=== PATIENT | female | born 1985 | race Caucasian/White ===

== ENCOUNTER 2022-12-18 20:41 | Inpatient (IN) | payer OTHER, SELFPAY ==
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
[2022-12-18 20:46] VITALS: BP 159/95; PULSE 114; RESP 18; TEMP 36.1; O2SAT 96; BMI 27.2
[2022-12-18 21:26] LABS: MANUAL DIFF FLAG NO
[2022-12-18 21:32] LABS: Basophils Percent Auto 0.5 % (0-2); Eosinophils Absolute Auto 0.1 X10*3/uL (0.0-0.4); Eosinophils Percent Auto 1.3 % (0-4); Hemoglobin 14.8 g/dl (12.0-16.0); Imm Gran Abs Auto 0.01 X10*3/uL (0.00-0.03); Imm Gran Pct Auto 0.1 % (0.0-0.4); Lymphocytes Absolute Auto 1.8 X10*3/uL (1.2-4.9); Lymphocytes Percent Auto 23.8 % (20-40); Mean Corpuscular HGB Conc 33.6 g/dl (31.0-35.0); Mean Corpuscular Volume 98.2 fL (80.0-98.0); Mean Platelet Volume 9.9 fL (9.4-12.3); Monocytes Absolute Auto 0.7 X10*3/uL (0.1-1.2); Monocytes Percent Auto 8.7 % (2-11); Neutrophils Absolute Auto 5.1 x10*3/uL (2.0-8.3); Neutrophils Percent Auto 65.6 % (45-73); Platelet Count 312 X10*3/uL (160-400); Red Blood Count 4.48 X10*6/uL (4.20-5.50); White Blood Count 7.7 X10*3/uL (4.8-10.8)
[2022-12-18 21:55] LABS: Alanine Aminotransferase 23 U/L (0-31); Albumin Level 4.4 g/dL (3.5-5.0); Alkaline Phosphatase 101 U/L (39-117); Anion Gap 15 (12-20); Aspartate Amino Transferase 29 U/L (5-31); Bilirubin Total 0.3 mg/dL (0.0-1.0); Blood Urea Nitrogen 11 mg/dL (9-16); Calcium 9.4 mg/dL (8.4-10.2); Carbon Dioxide 24 mmol/L (22-29); Chloride 110 mmol/L (96-108); Creatinine Clr Calc Pharmacy 86.4; Estimated Glomerular Filt Rate > 60; Glucose Random 88 mg/dL (60-115); Potassium 4.8 mmol/L (3.3-5.1); Sodium 144 mmol/L (135-145); Total Protein 6.7 g/dL (6.5-8.0)
[2022-12-18 21:56] LABS: COVID-19 Test Negative (Negative); IDNOW Serial# 55D5AD1C
[2022-12-18 21:59] LABS: Acetaminophen LAB < 17 mcg/mL (<30); Ethanol 170 mg/dL; Salicylate < 5.0 mg/dL (15-30)
[2022-12-19 01:30] VITALS: BP 104/65; PULSE 100; RESP 18; TEMP 36.7; O2SAT 98
[2022-12-19 01:41] LABS: Appearance Urine Clear; Color Urine Yellow; Glucose Urine UA Negative (Negative); Leukocyte Esterase Urine Negative (Negative); Nitrite Urine Negative (Negative); PH 5.5 (5.0-9.0); Specific Gravity - Urine 1.015 (1.005-1.025); Urine Blood Negative (Negative); Urine Ketones Trace mg/dL (Negative); Urine Protein Negative (Neg-Trace)
[2022-12-19 01:43] LABS: UPreg QC Valid YES; Urine Pregnancy NEGATIVE (NEGATIVE)
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
[2022-12-19 01:50] LABS: Amphetamine Screen Urine Not Detected (Not Detect); Barbiturates, Urine Not Detected (Not Detect); Benzodiazepines Screen Urine Not Detected (Not Detect); Cannabinoid Screen Urine POSITIVE (Not Detect); Cocaine Screen Urine Not Detected (Not Detect); Fentanyl, urine Not Detected (Not Detect); Opiate Screen Urine Not Detected (Not Detect); Phencyclidine Screen Urine Not Detected (Not Detect)
--- NOTE | 2022-12-19 06:57 | PC.NURSE ---
Patient was up whole night, restless and pacing, offered PRN medication refused, behavior psychotic but redirectable, thought content and process grossly paranoid and delusional, patient was assessed by care team disposition per care team is section 12 inpatient bed search, patient is not on any home medication, per family patient is off her medication for years, VSS, will continue to monitor.
--- NOTE | 2022-12-19 07:05 | PC.NURSE ---
patient appears to remain at rest at present. patient has already approached t/w in regards to taking a shower, i informed her we will assist her shirtly, appears in no distress, slight paranoid flavor. (asking for antibacterial soap)
--- NOTE | 2022-12-19 16:13 | PC.NURSE ---
Call made to [facility] regarding admission status. Per floor staff there was a delay in orders. Per Tahira, staff will be down shortly
[2022-12-19 16:45] VITALS: RESP 20
[2022-12-19] MEDS: LORazepam 2 MG/ML VIAL IM (16:45)
[2022-12-19] MEDS: OLANZapine 10 MG VIAL IM (16:45)
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
[2022-12-20 08:49] VITALS: RESP 16
--- NOTE | 2022-12-20 08:53 | PC.NURSE ---
12/20/22: Pt refused vital signs, labs, and EKG stating 'No one is allowed to touch me until I talk to my patternmaker plastics.' She complains of cyst. States I'm going to walk away now when presented with CIWA questions. Not displaying physical withdrawal symptoms.
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
[2022-12-20] MEDS: Nicotine Polacrilex Lozenge 4 MG LOZENGE BUCCAL (16:55)
[2022-12-20 18:00] VITALS: BP 126/68; PULSE 68; RESP 16; TEMP 36.4; O2SAT 98
--- NOTE | 2022-12-21 | ECG_ITS ---
Test Reason : Routine Blood Pressure : / mmHG Vent. Rate : 064 BPM Atrial Rate : 064 BPM P-R Int : 134 ms QRS Dur : 084 ms QT Int : 402 ms P-R-T Axes : 037 081 057 degrees QTc Int : 414 ms Normal sinus rhythm Normal ECG No previous ECGs available Referred By: Valencia Wheatley Electronically Signed By:MANISHA PARMAR
[2022-12-21] MEDS: Nicotine Polacrilex Lozenge 4 MG LOZENGE BUCCAL ×3 (04:02→20:44)
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
[2022-12-21] MEDS: Benztropine Mesylate 2 MG/2 ML VIAL 1 MG IM (09:42)
[2022-12-21] MEDS: Haloperidol Lactate 5 MG/ML VIAL IM (09:43)
[2022-12-21] MEDS: LORazepam 2 MG/ML VIAL IM (09:43)
[2022-12-21 09:50] VITALS: BP 122/81; PULSE 72; RESP 16; TEMP 36.7; O2SAT 98
[2022-12-21 10:05] VITALS: BP 121/71; PULSE 68; RESP 16; TEMP 36.7; O2SAT 98
[2022-12-21 10:20] VITALS: BP 121/68; PULSE 68; RESP 16; TEMP 36.7; O2SAT 98
[2022-12-21 10:35] VITALS: BP 120/70; PULSE 72; RESP 16; TEMP 36.7; O2SAT 98
--- NOTE | 2022-12-21 12:05 | PC.NURSE ---
On 12/21/22 at 0930 pt discovered to have barricaded herself in her room, would not allow staff or roommate to enter. Attempted verbal deescalation without effect. Security called, doctor called for restraint ordered. Orders given. Staff entered room. Pt had destroyed room and had hands up. Staff guided pt to restraint chair and applied restraints. IMs given as ordered at 9:35. Pt regained behavioral control and restraints were removed at 10:15. She was walked back to her room and went to sleep.
--- NOTE | 2022-12-21 13:24 | P.PNPSI_ITS ---
Subjective Subjective Date of Service: 12/21/22 Reason For Visit: david Subjective Notes: Section 7 Interim History: Pt in morning was chemically restraint. Pt yelling, threatening not able to be redirected. Pt later calmer, but not engaging in much conversation. She asks this health technical writer for a sweater, she is wearing blanket around her arms. Pt walked away and declined to talk further with this health technical writer. She presents as disheveled, unkempt. No meaninful conversations with staff or this health technical writer. Review of Systems Review of Systems Constitutional : No Weight loss, No Fever, No Chills, No Night Sweats, No Fatigue, No Malaise ENT/Mouth : No Hearing loss, No Ear Pain, No Nasal Congestion, No Sinus Pain, No Hoarseness, No sore throat, No Rhinorrhea, No Swallowing Difficulty Eyes: No Eye Pain, No Swelling, No Redness, No Foreign Body, No Discharge, No Vision Changes Cardiovascular : No Chest Pain, No SOB, No Dyspnea on Exertion, No Orthopnea, No Edema, No Palpitations Respiratory : No Cough, No Sputum, No Wheezing, No Smoke Exposure, No Dyspnea Gastrointestinal : No Nausea, No Vomiting, No Diarrhea, No Constipation, No abdominal Pain, No Hematochezia, No Melena Genitourinary : no irregular bleeding, No Dysuria, No Urinary Frequency, No Hematuria, No Urinary Incontinence, No Urgency, No Flank Pain, No Urinary Flow Changes, No Hesitancy Musculoskeletal : No joint pain, No Myalgias, No Joint Swelling Skin : No Skin Lesions, No rash Neuro : No Weakness, No Numbness, No Paresthesias, No Loss of Consciousness, No Dizziness, No Headache Psych : No Anxiety/Panic, No Depression, No SI/HI/AH/VH, admits to alcohol abuse Heme/Lymph: No Bruising, No Bleeding,No Lymphadenopathy Endocrine : No Polyuria, No Polydipsia, No Temperature Intolerance Yes all other systems are reviewed and are negative Reports behavioral changes and Reports confusion Psychiatric: Reports abnormal sleep pattern, Reports anxiety, Reports behavioral changes, Reports confusion, Reports difficulty concentrating, Reports irritability, Reports mood swings, Reports paranoia and Reports hallucinations Mental Status Exam Mental Status Exam Patient Appearance: Disheveled Patient Orientation: Person, Place, Time and Situation Level of Consciousness: Restless and Alert Patient Behavior: Guarded, Talkative, Hyperactive, Suspicious, Restless, Resistive to Care, Avoidant, Distractible, Impulsive and Poor Eye Contact Mood Description: Labile and Angry Affect Description: Labile and Angry Patient Cognition Impaired: No Ability to Follow Directions: Good Speech Pattern: Perseverating, Spontaneous Speech, Rambling, Cofabulation, Rapid and Pressured Memory Description: Episodic Impaired Diagnostics Vital Signs (24Hr): Vital Signs - 24 hr 12/21/22 10:35 12/21/22 20:02 12/22/22 06:00 Temperature 98.1 F 97.3 F Pulse Rate 72 74 Respiratory Rate 16 16 18 Blood Pressure 120/70 130/69 Pulse Oximetry 98 98 Oxygen Delivery Method Room Air Room Air BMI result Body Mass Index 27.2 Labs 12/18/22 21:22 12/18/22 21:22 Medications Medications Current Medications Acetaminophen (Acetaminophen 325 Mg Tablet) 650 mg PO Q6H PRN PRN Reason: Headache/Pain Mild Scale (1-3) Al Hydroxide/Mg Hydroxide (Magnesium Hydrox/Alum Hydrox 30 Ml Oral.Susp) 30 ml PO Q6H PRN PRN Reason: Heartburn/Nausea Hydroxyzine HCl (Hydroxyzine Hcl 25 Mg Tablet) 25 mg PO Q6H PRN PRN Reason: Anxiety Lorazepam (Lorazepam 1 Mg Tablet) 1 mg PO Q4H PRN PRN Reason: withdrawal, agitation Magnesium Hydroxide (Milk Of Magnesia 30 Ml Oral.Susp) 30 ml PO DAILY PRN PRN Reason: Constipation Multivitamins/Vitamin C (Multivitamin Tablet) 1 tab PO DAILY [facility] Last Admin: 12/22/22 08:28 Dose: Not Given Nicotine Polacrilex (Nicotine Polacrilex Lozenge 4 Mg Lozenge) 4 mg BUCCAL Q2H PRN PRN Reason: Nicotine Cravings Last Admin: 12/21/22 20:44 Dose: 4 mg Olanzapine (Olanzapine 10 Mg Tablet) 10 mg PO BID PRN PRN Reason: david, psychosis Thiamine HCl (Thiamine Hcl 100 Mg Tablet) 100 mg PO DAILY [facility] Last Admin: 12/22/22 08:28 Dose: Not Given Trazodone HCl (Trazodone Hcl 50 Mg Tablet) 50 mg PO BEDTIME MRX1 PRN PRN Reason: Insomnia Allergies Allergies Allergy/AdvReac Type Severity Reaction Status Date / Time No Known Allergies Allergy Verified 12/18/22 20:52 Assessment & Plan Assessment & Plan (1) Bipolar disorder with severe david: Status: Acute Code(s): F31.13 - Bipolar disorder, current episode manic without psychotic features, severe (2) Alcohol use disorder, severe, dependence: Status: Acute Code(s): F10.20 - Alcohol dependence, uncomplicated Plan 37 yo female, current david. Reports recent release from a hospital in [place], [place] Refuses medications, asks for an attorny and discharge Plan: Collateral contact Attempt alliance Pt given the number of [facility] for prosecuting attorney connection Refuses medications PRN medications are in place for david and withdrawal. 12/21 continue tx. Reason for contiued inpatient stay Substantial Risk for: harm to others and inability to function Time Spent With Patient Time: Total time managing care of this patient today ____ minutes.
[2022-12-21 20:02] VITALS: BP 130/69; PULSE 74; RESP 16; TEMP 36.3; O2SAT 98
[2022-12-22 06:00] VITALS: RESP 18
--- NOTE | 2022-12-22 10:20 | P.PNPSI_ITS ---
Subjective Subjective Date of Service: 12/22/22 Reason For Visit: david Interim History: Met with patient; discussed with nursing Patient calm after yesterday's restraint reports she slept through the night. Patient reports she had a visit today with her boyfriend and legal father which she said was fine but did not elaborate. Patient intermittently moderately intrusive with others, with intermittent disorganized behavior and disorganized speech. Patient is with pressured speech on approach and difficult to interrupt, almost as if she does not hear questions asked. Patient rambling about past events; she continually asks about a male peer on the unit saying she is worried about him, that he is lonely. Patient continues to refuse any medication and says she is just waiting for her lower. Mental Status Exam Mental Status Exam Narrative: Pt is alert and oriented; behavior is marginally cooperative but not un- friendly; hypomanic and intermittently verbally intrusive to others. Patient not in distress; dressed in casual attire and adequately groomed; mood is described as okay and affect constricted; eye contact avoidant; Speech is pressured, but normal volume and prosody; psychomotor agitation present; thought process can be goal oriented but is mostly rambling about topics irrelevant to context; delusiona, paranoid ideations present; denies any SI/HI. Denies AVH but internally preoccupied; Patients insight and judgment impaired Diagnostics Vital Signs (24Hr): Vital Signs - 24 hr 12/21/22 10:35 12/21/22 20:02 12/22/22 06:00 Temperature 98.1 F 97.3 F Pulse Rate 72 74 Respiratory Rate 16 16 18 Blood Pressure 120/70 130/69 Pulse Oximetry 98 98 Oxygen Delivery Method Room Air Room Air BMI result Body Mass Index 27.2 Labs 12/18/22 21:22 12/18/22 21:22 Medications Medications Current Medications Acetaminophen (Acetaminophen 325 Mg Tablet) 650 mg PO Q6H PRN PRN Reason: Headache/Pain Mild Scale (1-3) Al Hydroxide/Mg Hydroxide (Magnesium Hydrox/Alum Hydrox 30 Ml Oral.Susp) 30 ml PO Q6H PRN PRN Reason: Heartburn/Nausea Hydroxyzine HCl (Hydroxyzine Hcl 25 Mg Tablet) 25 mg PO Q6H PRN PRN Reason: Anxiety Lorazepam (Lorazepam 1 Mg Tablet) 1 mg PO Q4H PRN PRN Reason: withdrawal, agitation Magnesium Hydroxide (Milk Of Magnesia 30 Ml Oral.Susp) 30 ml PO DAILY PRN PRN Reason: Constipation Multivitamins/Vitamin C (Multivitamin Tablet) 1 tab PO DAILY [facility] Last Admin: 12/22/22 08:28 Dose: Not Given Nicotine Polacrilex (Nicotine Polacrilex Lozenge 4 Mg Lozenge) 4 mg BUCCAL Q2H PRN PRN Reason: Nicotine Cravings Last Admin: 12/21/22 20:44 Dose: 4 mg Olanzapine (Olanzapine 10 Mg Tablet) 10 mg PO BID PRN PRN Reason: david, psychosis Thiamine HCl (Thiamine Hcl 100 Mg Tablet) 100 mg PO DAILY [facility] Last Admin: 12/22/22 08:28 Dose: Not Given Trazodone HCl (Trazodone Hcl 50 Mg Tablet) 50 mg PO BEDTIME MRX1 PRN PRN Reason: Insomnia Allergies Allergies Allergy/AdvReac Type Severity Reaction Status Date / Time No Known Allergies Allergy Verified 12/18/22 20:52 Assessment & Plan Assessment & Plan (1) Bipolar disorder with severe david: Status: Acute Code(s): F31.13 - Bipolar disorder, current episode manic without psychotic features, severe (2) Alcohol use disorder, severe, dependence: Status: Acute Code(s): F10.20 - Alcohol dependence, uncomplicated Plan 37 yo female, current david. Reports recent release from a hospital in [place], [place] Refuses medications, asks for an attorny and discharge 12/22 patient difficult with which to engage; hypomanic with pressured speech and kind of in her own world talking about random unrelated topics; no insight; refuses medications; somewhat intrusive to peers but thus far redirectable Plan: Collateral contact Attempt alliance Pt given the number of [facility] for research attorney connection Refuses medications PRN medications are in place for david and withdrawal. Patient educated on: diagnosis and medication risk/benefits Informed Consent: does not understand Reason for contiued inpatient stay Substantial Risk for: inability to function and rapid decompensation Time Spent With Patient Time: Total time managing care of this patient today ____ minutes.
[2022-12-22] MEDS: Nicotine Polacrilex Lozenge 4 MG LOZENGE BUCCAL ×7 (11:03→22:31)
[2022-12-22 21:44] VITALS: BP 128/67; PULSE 89; RESP 16; TEMP 36.6; O2SAT 99
[2022-12-23] MEDS: Nicotine Polacrilex Lozenge 4 MG LOZENGE BUCCAL ×5 (00:31→19:06)
[2022-12-23] MEDS: LORazepam 2 MG/ML VIAL IM (03:40)
[2022-12-23] MEDS: diphenhydrAMINE HCL 50 MG/ML VIAL IM (03:40)
[2022-12-23] MEDS: Haloperidol Lactate 5 MG/ML VIAL IM (03:40)
--- NOTE | 2022-12-23 03:55 | PM.EVENT ---
Event Note Date of Service: 12/24/22 Event Note: Agitation: RN called that patient was chemically restrained because patient was agitated and aggressive towards staff. Spoke to the patient, patient is alert and awake, denies any complaints. Denies any pain. Signed the forms at 03:51 a.m. on 12/23/2022. Psychiatric is follow up in EM. Time Spent With Patient Time: Total time managing care of this patient today ____ minutes.
--- NOTE | 2022-12-23 04:09 | PC.NURSE ---
0315: Patient began to challenge staff, demanding that staff open unit door and let her out. Would not move away from unit door. Continuously shouting that her rights have been violated for the past three days and should be allowed to leave the hospital immediately. Yelling and swearing at staff, making insulting remarks.Making delusional statements. Staff unable to reality test. Security called for support. Dr Schmid notified and ordered Haldol 5mg, Ativan 2mg, Benadryl 50mg IM which were given at 0340. Pt was cooperative and accepted the injections. Dr Perez on unit at 0400 to evaluate patient. Presently, patient is resting calmly in her room.
[2022-12-23 09:36] VITALS: RESP 18
--- NOTE | 2022-12-23 11:44 | PM.EVENT ---
Event Note Date of Service: 12/23/22 Event Note: early this morning nursing called asking for IM restraint medication; pt was reportedly banging on exit door, could not be redirected, patient escalated and required medication restraint. Haldol 5, Ativan 2 and Benadryl 50 ordered Time Spent With Patient Time: Total time managing care of this patient today ____ minutes.
--- NOTE | 2022-12-23 11:45 | P.PNPSI_ITS ---
Subjective Subjective Date of Service: 12/23/22 Reason For Visit: david Interim History: Met with patient; discussed with nursing Patient remains disorganized and rambling. Very difficult with which to engage, talking over ticket writer about getting a water regulator and valve repairer; unable to have a meaningful conver sation. Very loud in the milieu. Mental Status Exam Mental Status Exam Narrative: Pt is alert and oriented; behavior is manic, loudly talking, rambling; intermittently verbally intrusive to others. Patient not in distress; dressed in casual attire and adequately groomed; mood is described as irritable; affect constricted; eye contact avoidant; Speech is pressured, loud volume; psychomotor agitation present; thought process can be goal oriented but is mostly rambling about topics some relevant, other irrelevant to context; delusional paranoid ideations present; denies any SI/HI. Denies AVH but internally preoccupied; Patients insight and judgment impaired Diagnostics Vital Signs (24Hr): Vital Signs - 24 hr 12/22/22 21:44 12/23/22 09:36 Temperature 97.8 F Pulse Rate 89 Respiratory Rate 16 18 Blood Pressure 128/67 Pulse Oximetry 99 Oxygen Delivery Method Room Air BMI result Body Mass Index 27.2 Labs 12/18/22 21:22 12/18/22 21:22 Medications Medications Current Medications Acetaminophen (Acetaminophen 325 Mg Tablet) 650 mg PO Q6H PRN PRN Reason: Headache/Pain Mild Scale (1-3) Al Hydroxide/Mg Hydroxide (Magnesium Hydrox/Alum Hydrox 30 Ml Oral.Susp) 30 ml PO Q6H PRN PRN Reason: Heartburn/Nausea Hydroxyzine HCl (Hydroxyzine Hcl 25 Mg Tablet) 25 mg PO Q6H PRN PRN Reason: Anxiety Magnesium Hydroxide (Milk Of Magnesia 30 Ml Oral.Susp) 30 ml PO DAILY PRN PRN Reason: Constipation Multivitamins/Vitamin C (Multivitamin Tablet) 1 tab PO DAILY [facility] Last Admin: 12/23/22 09:36 Dose: Not Given Nicotine Polacrilex (Nicotine Polacrilex Lozenge 4 Mg Lozenge) 4 mg BUCCAL Q2H PRN PRN Reason: Nicotine Cravings Last Admin: 12/23/22 09:53 Dose: 4 mg Olanzapine (Olanzapine 10 Mg Tablet) 10 mg PO BID PRN PRN Reason: david, psychosis Thiamine HCl (Thiamine Hcl 100 Mg Tablet) 100 mg PO DAILY [facility] Last Admin: 12/23/22 09:36 Dose: Not Given Trazodone HCl (Trazodone Hcl 50 Mg Tablet) 50 mg PO BEDTIME MRX1 PRN PRN Reason: Insomnia Allergies Allergies Allergy/AdvReac Type Severity Reaction Status Date / Time No Known Allergies Allergy Verified 12/18/22 20:52 Assessment & Plan Assessment & Plan (1) Bipolar disorder with severe david: Status: Acute Code(s): F31.13 - Bipolar disorder, current episode manic without psychotic features, severe (2) Alcohol use disorder, severe, dependence: Status: Acute Code(s): F10.20 - Alcohol dependence, uncomplicated Plan 37 yo female, current david. Reports recent release from a hospital in [place], [place] Refuses medications, asks for an attorny and discharge 12/22 patient difficult with which to engage; hypomanic with pressured speech and kind of in her own world talking about random unrelated topics; no insight; refuses medications; somewhat intrusive to peers but thus far redirectable 12/23 patient dysregulated last night banging on the exit door, refusing to disengage and needing security and it medical restraint; patient remains loud and difficult with which to engage, no insight. Patient switched to Q 5s with locked bathroom as she was stopping the toilet and sink with paper Plan: Q 5s with locked bathroom Collateral contact Attempt alliance Pt given the number of [facility] for certified medical coder connection Refuses medications PRN medications are in place for david and withdrawal. Informed Consent: does not understand Reason for contiued inpatient stay Substantial Risk for: inability to function Time Spent With Patient Time: Total time managing care of this patient today ____ minutes.
--- NOTE | 2022-12-23 13:59 | PC.NURSE ---
pt was assisted by usama DE DIOS to assist her in calling [facility] as she feels she is being held here against her will. message left with the answering machine
[2022-12-23 18:00] VITALS: BP 128/68; PULSE 71; RESP 16; TEMP 36.8; O2SAT 98
--- NOTE | 2022-12-23 20:38 | PC.NURSE ---
Pt is alert and oriented, manic and disorganized. Pt had a tearful moment during her sister's visit and requested not to have any family visit for some time.
[2022-12-24] MEDS: Nicotine Polacrilex Lozenge 4 MG LOZENGE BUCCAL ×8 (06:13→22:31)
[2022-12-24 07:46] VITALS: BP 120/70; PULSE 80; RESP 16; TEMP 36.5; O2SAT 99
[2022-12-24] MEDS: Multivitamin TABLET 1 TAB PO (08:20)
[2022-12-24] MEDS: Thiamine HCL 100 MG TABLET PO (08:20)
[2022-12-24] MEDS: hydrOXYzine HCL 25 MG TABLET PO (15:30)
--- NOTE | 2022-12-24 16:51 | HO.PSYCHPN ---
Subjective Subjective Date of Service: 12/24/22 Reason For Visit: david Subjective Notes: Section 7 Interim History: Section seven. Irritable with some intrusive, disorganized sx. No restraint need today. Declines medications, declines treatment Met with pt and DAJUAN Wright. discussed [address] to decide about further treatment. Pt reports she has just completed this process in [place], [place] and was released by the project lead. No questions, pt not wanting to engage in discussion about her symptoms or care today. Medication Compliance: No Side effects from medications: No Attending Groups: No Review of Systems Acute medical concerns: No Medical Review of Systems: unchanged Mental Status Exam Mental Status Exam Patient Appearance: Appropriate Patient Orientation: Person, Place, Time and Situation Level of Consciousness: Alert Patient Behavior: Guarded, Talkative, Hyperactive, Suspicious, Restless, Resistive to Care, Distractible, Good Eye Contact and Impulsive Mood Description: Labile Affect Description: Labile Patient Cognition Impaired: No Ability to Follow Directions: Fair Speech Pattern: Spontaneous Speech Memory Description: Episodic Impaired Hallucinations: None Delusions: Not Present Thought Process: Racing and Distracted Thought Content: positive for Racing, positive for Circumstantial, positive for Tangential, positive for Suicidal Ideation (denies) and positive for Homicidal Ideation (denies) Depressive Symptoms: Increased Irritability and Thoughts of /Suicide (denies) Abnormal Motor Activity Signs and Symptoms: Restlessness Judgement: Poor Diagnostics Vital Signs (24Hr): Vital Signs - 24 hr 12/23/22 18:00 12/24/22 07:46 Temperature 98.2 F 97.7 F Pulse Rate 71 80 Respiratory Rate 16 16 Blood Pressure 128/68 120/70 Pulse Oximetry 98 99 Oxygen Delivery Method Room Air Room Air BMI result Body Mass Index 27.2 Labs 12/18/22 21:22 12/18/22 21:22 Medications Medications Current Medications Acetaminophen (Acetaminophen 325 Mg Tablet) 650 mg PO Q6H PRN PRN Reason: Headache/Pain Mild Scale (1-3) Al Hydroxide/Mg Hydroxide (Magnesium Hydrox/Alum Hydrox 30 Ml Oral.Susp) 30 ml PO Q6H PRN PRN Reason: Heartburn/Nausea Hydroxyzine HCl (Hydroxyzine Hcl 25 Mg Tablet) 25 mg PO Q6H PRN PRN Reason: Anxiety Last Admin: 12/24/22 15:30 Dose: 25 mg Magnesium Hydroxide (Milk Of Magnesia 30 Ml Oral.Susp) 30 ml PO DAILY PRN PRN Reason: Constipation Multivitamins/Vitamin C (Multivitamin Tablet) 1 tab PO DAILY [facility] Last Admin: 12/24/22 08:20 Dose: 1 tab Nicotine Polacrilex (Nicotine Polacrilex Lozenge 4 Mg Lozenge) 4 mg BUCCAL Q2H PRN PRN Reason: Nicotine Cravings Last Admin: 12/24/22 16:37 Dose: 4 mg Nicotine Polacrilex (Nicotine Polacrilex 2 Mg Gum) 2 mg BUCCAL Q2H PRN PRN Reason: Nicotine Cravings Olanzapine (Olanzapine 10 Mg Tablet) 10 mg PO BID PRN PRN Reason: david, psychosis Thiamine HCl (Thiamine Hcl 100 Mg Tablet) 100 mg PO DAILY [facility] Last Admin: 12/24/22 08:20 Dose: 100 mg Trazodone HCl (Trazodone Hcl 50 Mg Tablet) 50 mg PO BEDTIME MRX1 PRN PRN Reason: Insomnia Allergies Allergies Allergy/AdvReac Type Severity Reaction Status Date / Time No Known Allergies Allergy Verified 12/18/22 20:52 Assessment & Plan Assessment & Plan (1) Bipolar disorder with severe david: Status: Acute Code(s): F31.13 - Bipolar disorder, current episode manic without psychotic features, severe (2) Alcohol use disorder, severe, dependence: Status: Acute Code(s): F10.20 - Alcohol dependence, uncomplicated Plan 37 yo female, current david. Reports recent release from a hospital in [place], [place] Refuses medications, asks for an attorny and discharge 12/22 patient difficult with which to engage; hypomanic with pressured speech and kind of in her own world talking about random unrelated topics; no insight; refuses medications; somewhat intrusive to peers but thus far redirectable 12/23 patient dysregulated last night banging on the exit door, refusing to disengage and needing security and it medical restraint; patient remains loud and difficult with which to engage, no insight. Patient switched to Q 5s with locked bathroom as she was stopping the toilet and sink with paper 12/24/22: Section Seven filed. No questions from pt at this time. Refusing medications No restraint needed today. Plan: Q 5s with locked bathroom Collateral contact Attempt alliance Pt given the number of [facility] for commercial attorney connection Refuses medications PRN medications are in place for david and withdrawal. Patient educated on: other Informed Consent: understands Reason for contiued inpatient stay Substantial Risk for: harm to self, harm to others, inability to function and rapid decompensation Time Spent With Patient Time: Total time managing care of this patient today ____ minutes.
[2022-12-24 20:44] VITALS: RESP 16
[2022-12-25] MEDS: Nicotine Polacrilex Lozenge 4 MG LOZENGE BUCCAL ×6 (07:07→21:44)
[2022-12-25 08:34] VITALS: BP 120/72; PULSE 90; RESP 18; TEMP 35.9; O2SAT 98
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
[2022-12-26] MEDS: Nicotine Polacrilex Lozenge 4 MG LOZENGE BUCCAL ×7 (07:53→22:05)
[2022-12-26 09:01] VITALS: BP 113/71; PULSE 68; RESP 16; TEMP 36.6; O2SAT 98
--- NOTE | 2022-12-26 11:55 | P.CONOB_ITS ---
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 She requested someone to check her because she is concerned about a cyst or abscess on her clitoris. She says that she had a very bad abscess at her clitoris 3 years ago that she was seen at the [facility] emergency room for that needed to be lanced with an Exacto knife and she ended up having surgery to remove the sac around the abscess. She said it was the most painful thing she ever experienced and she is very afraid of that happening again. She is sexually active with her boyfriend and would like to have a baby. She is wondering if she could have a baby and if she is healthy enough. In October she felt the swelling and pain again and she was afraid of having more pain with a surgical process but she went to [facility] and they were able to give her morphine this time and they extracted a large amount of blood in a syringe from the cyst that had formed there. She says that the doctor there told her to take warm showers or soak in a tub but she thinks the warm water running is better and she was told to gently try to press on the abscess to see if anything will come out when it is swollen. She is not having any pain there now but she is worried about it. She also thinks she would like to get tested for STDs because if she did have anything she would hate to give it to her boyfriend. cc:: CC: Valencia Wheatley [facility] Past Medical History Medical History (Updated 12/26/22 @ 12:10 by Jeni Sun CNM) Alcohol use disorder, severe, dependence Bipolar disorder with severe david Social History Social History Household Members: Significant Other and Other Household Members Other:: boyfriend's father Housing: Apartment Do you presently have visiting nurse or other home services: No Unable to assess alcohol history related to: Refusing to respond Patient Tobacco Use Status: Current everyday Tobacco user Tobacco use type: Cigarette Cigarette Packs Per Day: 1 Cigarettes Per Day: 20.0 Smoked in Last 30 Days: Yes e-Cigarette/Vaping Use: Never Used Patient Interested in Nicotine Replacement: Yes Patient Given Instructions on How to Stop Smoking: No Second Hand Smoke Exposure: No Use of substances other than those prescribed or required for medical reasons: Yes Substance Use Type: Marijuana Substance Use Frequency: Chronic Longstanding Last Used Substance: Just Prior to Admission Currently Displaying Signs/Symptoms of Drug Intoxication Withdrawal: No Any prior treatment program specific to substance use: Yes Spiritual Healthcare Practices: unknown Congregational Healthcare Practices: unknown Cultural Healthcare Practices: unknown Advance Directives: No Advance Directives Information Provided: Yes Healthcare Proxy: No Guardian: No Do you have thoughts of harming others: None Do you have a plan to hurt others: No Plan Recently lost weight without trying: No Eating poorly because of decreased appetite: No Nutrition Risks: No Nutritional Risk Patient : No : No Poor oral hygiene: No service: No Sexual orientation: Straight/Heterosexual Meds Allergies Allergy/AdvReac Type Severity Reaction Status Date / Time No Known Allergies Allergy Verified 12/18/22 20:52 Active Medications: Current Medications Acetaminophen (Acetaminophen 325 Mg Tablet) 650 mg PO Q6H PRN PRN Reason: Headache/Pain Mild Scale (1-3) Al Hydroxide/Mg Hydroxide (Magnesium Hydrox/Alum Hydrox 30 Ml Oral.Susp) 30 ml PO Q6H PRN PRN Reason: Heartburn/Nausea Hydroxyzine HCl (Hydroxyzine Hcl 25 Mg Tablet) 25 mg PO Q6H PRN PRN Reason: Anxiety Last Admin: 12/24/22 15:30 Dose: 25 mg Magnesium Hydroxide (Milk Of Magnesia 30 Ml Oral.Susp) 30 ml PO DAILY PRN PRN Reason: Constipation Multivitamins/Vitamin C (Multivitamin Tablet) 1 tab PO DAILY [facility] Last Admin: 12/26/22 08:49 Dose: Not Given Nicotine Polacrilex (Nicotine Polacrilex Lozenge 4 Mg Lozenge) 4 mg BUCCAL Q2H PRN PRN Reason: Nicotine Cravings Last Admin: 12/26/22 10:10 Dose: 4 mg Nicotine Polacrilex (Nicotine Polacrilex 2 Mg Gum) 2 mg BUCCAL Q2H PRN PRN Reason: Nicotine Cravings Olanzapine (Olanzapine 10 Mg Tablet) 10 mg PO BID PRN PRN Reason: david, psychosis Thiamine HCl (Thiamine Hcl 100 Mg Tablet) 100 mg PO DAILY [facility] Last Admin: 12/26/22 08:49 Dose: Not Given Trazodone HCl (Trazodone Hcl 50 Mg Tablet) 50 mg PO BEDTIME MRX1 PRN PRN Reason: Insomnia Home Medications Medication Instructions Recorded Confirmed Last Taken Type No Known Home Meds 12/18/22 12/18/22 Unknown History 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 Physical Exam Vitals Vital signs: Temp Pulse Resp BP Pulse Ox O2 Del Method 97.8 F 68 16 113/71 98 12/26/22 09:01 12/26/22 09:01 12/26/22 09:01 12/26/22 09:01 12/26/22 09:01 12/26/22 09:01 BMI result Body Mass Index 27.2 Female Genitalia (Pelvic) Bladder/Urethra: Normal meatus Vulva: No lesions and No masses (Clitoris slightly enlarged, small Pea size swelling underneath clitoral arora, no redness, nontender, no exudate) Vagina: Nontender and No erythema Cervix: No discharge 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 I recommend that she continue following her good self-care with warm showers I cautioned her to be extremely gentle if she does any gentle touching of the area and not to squeeze that that generally causes more problems. If it does become swollen painful reddened warm then she would need to see seek emergency care and it would probably need to be attended to in some manner similar to how it had been cared for earlier. She inquired about best underwear to where the given that she is in the hospital currently she use given mesh underwear and that it would be acceptable. Recommend continuing warm showers that that is a very good way to care for the concern but to not engage in extra stimulation of the area in any way until it is so completely better that she forgets about it. Testing was done for gonorrhea and chlamydia trichomoniasis Gardnerella and Khushi. Patient inquired as to whether not I thought she could have a baby and I shared that this is a larger question but 1 thing that would be important would be to get her her healthiest place possible 1st. Giving her a chance to get to a good place of recovery would be important. She inquired about vitamins and she says they are giving her a multivitamin in the hospital and I told her that was good. I showed the patient her clitoral area with a mirror there is a small healed incision to the right of the clitoris and on blanca on the left side as well that could be consistent with a clitoral piercing. But the patient says she never had a clitoral piercing that it was from when they lanced it to get out what ever they got out. Diffuse well-healed and epithelialized at this time and there is no redness or swelling other than the slight pea-sized sub clitoral swelling and there is no tenderness to the area at all. Time Spent With Patient Time: Total time managing care of this patient today __25__ minutes.
[2022-12-26] MEDS: Nicotine Polacrilex 2 MG GUM BUCCAL (12:08)
[2022-12-26 15:26] LABS: CT PCR NOT DETECTED (Not Detect.); NG PCR NOT DETECTED (Not Detect.)
[2022-12-26 18:00] VITALS: BP 139/85; PULSE 79; RESP 16; TEMP 36.9; O2SAT 99
--- NOTE | 2022-12-26 18:39 | P.PNPSI_ITS ---
Subjective Subjective Date of Service: 12/26/22 Reason For Visit: david Subjective Notes: Section 7 Healthcare Proxy: No Guardianship: No Medical Problems Affecting Mental Status: No Interim History: Pt believes she is being recorded at all times. She is encouraging other peers to refuse treatment as she believes a conspiracy to be in process. Court 01/01. She declines to meet. I only need to talk to the solar photovoltaic crew lead No severe agitation or need for medication intervention. Social with peers. Visable and interactive. Medication Compliance: No Side effects from medications: No Attending Groups: Intermittent Review of Systems Acute medical concerns: No Medical Review of Systems: unchanged Mental Status Exam Mental Status Exam Patient Appearance: Appropriate Patient Orientation: Person, Place, Time and Situation Level of Consciousness: Alert Patient Behavior: Guarded, Talkative, Hyperactive, Suspicious, Restless, Resistive to Care, Distractible, Good Eye Contact and Impulsive Mood Description: Labile Affect Description: Labile Patient Cognition Impaired: No Ability to Follow Directions: Fair Speech Pattern: Spontaneous Speech Memory Description: Episodic Impaired Hallucinations: None Delusions: Not Present Thought Process: Racing and Distracted Thought Content: positive for Racing, positive for Circumstantial, positive for Tangential, positive for Suicidal Ideation (denies) and positive for Homicidal Ideation (denies) Depressive Symptoms: Increased Irritability and Thoughts of /Suicide (denies) Abnormal Motor Activity Signs and Symptoms: Restlessness Judgement: Poor Diagnostics Vital Signs (24Hr): Vital Signs - 24 hr 12/26/22 09:01 Temperature 97.8 F Pulse Rate 68 Respiratory Rate 16 Blood Pressure 113/71 Pulse Oximetry 98 Oxygen Delivery Method Room Air BMI result Body Mass Index 27.2 Labs 12/18/22 21:22 12/18/22 21:22 Labs: Laboratory Results - last 48 hr 12/26/22 Unknown Chlam trachomat DNA PCR NOT DETECTED N.gonorrhoeae DNA (PCR) NOT DETECTED Medications Medications Current Medications Acetaminophen (Acetaminophen 325 Mg Tablet) 650 mg PO Q6H PRN PRN Reason: Headache/Pain Mild Scale (1-3) Al Hydroxide/Mg Hydroxide (Magnesium Hydrox/Alum Hydrox 30 Ml Oral.Susp) 30 ml PO Q6H PRN PRN Reason: Heartburn/Nausea Hydroxyzine HCl (Hydroxyzine Hcl 25 Mg Tablet) 25 mg PO Q6H PRN PRN Reason: Anxiety Last Admin: 12/24/22 15:30 Dose: 25 mg Magnesium Hydroxide (Milk Of Magnesia 30 Ml Oral.Susp) 30 ml PO DAILY PRN PRN Reason: Constipation Multivitamins/Vitamin C (Multivitamin Tablet) 1 tab PO DAILY [facility] Last Admin: 12/26/22 08:49 Dose: Not Given Nicotine Polacrilex (Nicotine Polacrilex Lozenge 4 Mg Lozenge) 4 mg BUCCAL Q2H PRN PRN Reason: Nicotine Cravings Last Admin: 12/26/22 18:07 Dose: 4 mg Nicotine Polacrilex (Nicotine Polacrilex 2 Mg Gum) 2 mg BUCCAL Q2H PRN PRN Reason: Nicotine Cravings Last Admin: 12/26/22 12:08 Dose: 2 mg Olanzapine (Olanzapine 10 Mg Tablet) 10 mg PO BID PRN PRN Reason: david, psychosis Thiamine HCl (Thiamine Hcl 100 Mg Tablet) 100 mg PO DAILY [facility] Last Admin: 12/26/22 08:49 Dose: Not Given Trazodone HCl (Trazodone Hcl 50 Mg Tablet) 50 mg PO BEDTIME MRX1 PRN PRN Reason: Insomnia Allergies Allergies Allergy/AdvReac Type Severity Reaction Status Date / Time No Known Allergies Allergy Verified 12/18/22 20:52 Assessment & Plan Assessment & Plan (1) Bipolar disorder with severe david: Status: Acute Code(s): F31.13 - Bipolar disorder, current episode manic without psychotic features, severe (2) Alcohol use disorder, severe, dependence: Status: Acute Code(s): F10.20 - Alcohol dependence, uncomplicated Plan 12/26/22: Section VII Pt declines treatment at this time Remains labile, with paranoia and has begun to initiate conflict in milieu, encouraging peers to decline their treatment. Informed Consent: further education needed Reason for contiued inpatient stay Substantial Risk for: rapid decompensation Time Spent With Patient Time: Total time managing care of this patient today ____ minutes.
[2022-12-27] MEDS: Nicotine Polacrilex Lozenge 4 MG LOZENGE BUCCAL ×7 (03:57→19:05)
[2022-12-27 09:41] VITALS: RESP 18
[2022-12-27 10:57] LABS: BV Int Neg Control Negative (Negative); BV Int Pos Control Positive (Positive)
--- NOTE | 2022-12-27 14:17 | HO.PSYCHPN ---
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 Visable in milieu, labile, declines to meet with team, social yet instigating at times with her peers. Medication Compliance: No Side effects from medications: No Attending Groups: Intermittent Review of Systems Acute medical concerns: No Mental Status Exam Mental Status Exam Patient Appearance: Appropriate Patient Orientation: Person, Place, Time and Situation Level of Consciousness: Alert Patient Behavior: Guarded, Talkative, Hyperactive, Suspicious, Restless, Resistive to Care, Distractible, Good Eye Contact and Impulsive Mood Description: Labile Affect Description: Labile Patient Cognition Impaired: No Ability to Follow Directions: Fair Speech Pattern: Spontaneous Speech Memory Description: Episodic Impaired Hallucinations: None Delusions: Not Present Thought Process: Racing and Distracted Thought Content: positive for Racing, positive for Circumstantial, positive for Tangential, positive for Suicidal Ideation (denies) and positive for Homicidal Ideation (denies) Depressive Symptoms: Increased Irritability and Thoughts of /Suicide (denies) Abnormal Motor Activity Signs and Symptoms: Restlessness Judgement: Poor Diagnostics Vital Signs (24Hr): Vital Signs - 24 hr 12/26/22 18:00 12/27/22 09:41 Temperature 98.5 F Pulse Rate 79 Respiratory Rate 16 18 Blood Pressure 139/85 Pulse Oximetry 99 Oxygen Delivery Method Room Air BMI result Body Mass Index 27.2 Labs 12/18/22 21:22 12/18/22 21:22 Labs: Laboratory Results - last 48 hr 12/26/22 12/26/22 Unknown Unknown Khushi species DNA Negative Chlam trachomat DNA PCR NOT DETECTED Gardnerella DNA Probe Negative N.gonorrhoeae DNA (PCR) NOT DETECTED Trichomonas DNA Probe Negative Medications Medications Current Medications Acetaminophen (Acetaminophen 325 Mg Tablet) 650 mg PO Q6H PRN PRN Reason: Headache/Pain Mild Scale (1-3) Al Hydroxide/Mg Hydroxide (Magnesium Hydrox/Alum Hydrox 30 Ml Oral.Susp) 30 ml PO Q6H PRN PRN Reason: Heartburn/Nausea Hydroxyzine HCl (Hydroxyzine Hcl 25 Mg Tablet) 25 mg PO Q6H PRN PRN Reason: Anxiety Last Admin: 12/24/22 15:30 Dose: 25 mg Magnesium Hydroxide (Milk Of Magnesia 30 Ml Oral.Susp) 30 ml PO DAILY PRN PRN Reason: Constipation Multivitamins/Vitamin C (Multivitamin Tablet) 1 tab PO DAILY [facility] Last Admin: 12/27/22 09:01 Dose: Not Given Nicotine Polacrilex (Nicotine Polacrilex Lozenge 4 Mg Lozenge) 4 mg BUCCAL Q2H PRN PRN Reason: Nicotine Cravings Last Admin: 12/27/22 12:28 Dose: 4 mg Nicotine Polacrilex (Nicotine Polacrilex 2 Mg Gum) 2 mg BUCCAL Q2H PRN PRN Reason: Nicotine Cravings Last Admin: 12/26/22 12:08 Dose: 2 mg Olanzapine (Olanzapine 10 Mg Tablet) 10 mg PO BID PRN PRN Reason: david, psychosis Thiamine HCl (Thiamine Hcl 100 Mg Tablet) 100 mg PO DAILY [facility] Last Admin: 12/27/22 09:01 Dose: Not Given Trazodone HCl (Trazodone Hcl 50 Mg Tablet) 50 mg PO BEDTIME MRX1 PRN PRN Reason: Insomnia Allergies Allergies Allergy/AdvReac Type Severity Reaction Status Date / Time No Known Allergies Allergy Verified 12/18/22 20:52 Assessment & Plan Assessment & Plan (1) Alcohol use disorder, severe, dependence: Status: Acute Code(s): F10.20 - Alcohol dependence, uncomplicated (2) Bipolar disorder with severe david: Status: Acute Code(s): F31.13 - Bipolar disorder, current episode manic without psychotic features, severe Plan 12/27/22 Section 7, court 01/01. Continue to monitor. Informed Consent: further education needed Reason for contiued inpatient stay Substantial Risk for: rapid decompensation Time Spent With Patient Time: Total time managing care of this patient today ____ minutes.
[2022-12-27 17:19] VITALS: BP 131/64; PULSE 85; RESP 16; TEMP 36.1; O2SAT 98
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
[2022-12-28] MEDS: Nicotine Polacrilex Lozenge 4 MG LOZENGE BUCCAL ×8 (03:04→19:01)
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
[2022-12-28 10:55] VITALS: RESP 18
[2022-12-28 16:45] VITALS: BP 144/69; PULSE 77; TEMP 35.6
[2022-12-29] MEDS: Nicotine Polacrilex Lozenge 4 MG LOZENGE BUCCAL ×10 (02:22→23:59)
[2022-12-29 08:30] VITALS: BP 117/71; PULSE 87; RESP 18; TEMP 36.6; O2SAT 97
--- NOTE | 2022-12-29 16:45 | HO.PSYCHPN ---
Subjective Subjective Date of Service: 12/29/22 Reason For Visit: david Subjective Notes: Section 7 Medical Problems Affecting Mental Status: No Interim History: refer discussed with Nursing. Attempted to meet with patient and interaction very brief as she was irritable with psychosis declining full interview. Has been declining medications. Aware recent aggressive behavior. Reported to teletypewriter installer that she believes she is because she has goose bumps on her skin. Was talking with another patient and getting irritable stating they took blood from her heroin vein and try to give her medications that will cause defects to her baby. Medication Compliance: No Side effects from medications: No Attending Groups: No Review of Systems Acute medical concerns: No Review of Systems Review of Systems Yes Unobtainable due to mental status Mental Status Exam Mental Status Exam Narrative: Hospital clothing. Self-care okay. Irritable. Intense. Declining full interview. Does appear to have paranoid delusions. Insight and judgment limited Diagnostics Vital Signs (24Hr): Vital Signs - 24 hr 12/29/22 08:30 Temperature 97.8 F Pulse Rate 87 Respiratory Rate 18 Blood Pressure 117/71 Pulse Oximetry 97 BMI result Body Mass Index 27.2 Labs 12/18/22 21:22 12/18/22 21:22 Imaging Radiology Impressions: [facility] Impressions Head CT 12/28/22 10:24 IMPRESSION: No acute intracranial process seen. Medications Medications Current Medications Acetaminophen (Acetaminophen 325 Mg Tablet) 650 mg PO Q6H PRN PRN Reason: Headache/Pain Mild Scale (1-3) Al Hydroxide/Mg Hydroxide (Magnesium Hydrox/Alum Hydrox 30 Ml Oral.Susp) 30 ml PO Q6H PRN PRN Reason: Heartburn/Nausea Hydroxyzine HCl (Hydroxyzine Hcl 25 Mg Tablet) 25 mg PO Q6H PRN PRN Reason: Anxiety Last Admin: 12/24/22 15:30 Dose: 25 mg Magnesium Hydroxide (Milk Of Magnesia 30 Ml Oral.Susp) 30 ml PO DAILY PRN PRN Reason: Constipation Multivitamins/Vitamin C (Multivitamin Tablet) 1 tab PO DAILY [facility] Last Admin: 12/29/22 08:06 Dose: Not Given Nicotine Polacrilex (Nicotine Polacrilex Lozenge 4 Mg Lozenge) 4 mg BUCCAL Q2H PRN PRN Reason: Nicotine Cravings Last Admin: 12/29/22 15:06 Dose: 4 mg Nicotine Polacrilex (Nicotine Polacrilex 2 Mg Gum) 2 mg BUCCAL Q2H PRN PRN Reason: Nicotine Cravings Last Admin: 12/26/22 12:08 Dose: 2 mg Olanzapine (Olanzapine 10 Mg Tablet) 10 mg PO BID PRN PRN Reason: david, psychosis Thiamine HCl (Thiamine Hcl 100 Mg Tablet) 100 mg PO DAILY [facility] Last Admin: 12/29/22 08:06 Dose: Not Given Trazodone HCl (Trazodone Hcl 50 Mg Tablet) 50 mg PO BEDTIME MRX1 PRN PRN Reason: Insomnia Allergies Allergies Allergy/AdvReac Type Severity Reaction Status Date / Time No Known Allergies Allergy Verified 12/18/22 20:52 Assessment & Plan Assessment & Plan (1) Bipolar disorder with severe david: Status: Acute Code(s): F31.13 - Bipolar disorder, current episode manic without psychotic features, severe Plan 12/29/22- Observe, monitor, court 01/01. Continues to refuse treatment. Reason for contiued inpatient stay Substantial Risk for: harm to others, inability to function and rapid decompensation Time Spent With Patient Time: Total time managing care of this patient today ____ minutes.
[2022-12-29 17:21] VITALS: BP 143/65; PULSE 68; RESP 18; TEMP 36.6; O2SAT 99
[2022-12-30] MEDS: Nicotine Polacrilex Lozenge 4 MG LOZENGE BUCCAL ×7 (06:51→22:06)
[2022-12-30 08:15] VITALS: BP 131/68; PULSE 86; RESP 16; TEMP 35.9; O2SAT 99
--- NOTE | 2022-12-30 14:32 | PC.NURSE ---
Pt had scheduled visit with her mother at 1300. Visit was cancelled by charge nurse 13:20 due to patient's refusal to have the visit in the group room rather than in the [facility]. Prior to the end of the visit multiple other patients were found to be in the group room with the Erica and her mother attempting to sign releases to have their records given to Erica's mother. The visitor was agreeable to following unit rules and coming back another day. Erica continued to be agitated and demanding of proof that there is a policy against visits happening in the [facility].
--- NOTE | 2022-12-30 17:19 | P.PNPSI_ITS ---
Subjective Subjective Date of Service: 12/30/22 Reason For Visit: david Subjective Notes: Section 7 Interim History: patient continues to present as disorganized and irritable. Initially requested nicotine lozenges every 2 hours. When database report writer stated they would order that, became irritable. Very limited interaction. Later swore at database report writer has a left unit for unclear reasons. Declines need for medications or treatment. Court 01/01 Medication Compliance: No Attending Groups: Intermittent Review of Systems Acute medical concerns: No Review of Systems Review of Systems Yes Unobtainable due to mental status Mental Status Exam Mental Status Exam Narrative: Hospital clothing. Self-care okay. Irritable. Intense. Declining full interview. Does appear to have paranoid delusions. Insight and judgment limite d Diagnostics Vital Signs (24Hr): Vital Signs - 24 hr 12/29/22 17:21 12/30/22 08:15 Temperature 97.9 F 96.7 F L Pulse Rate 68 86 Respiratory Rate 18 16 Blood Pressure 143/65 H 131/68 Pulse Oximetry 99 99 Oxygen Delivery Method Room Air Room Air BMI result Body Mass Index 27.2 Labs 12/18/22 21:22 12/18/22 21:22 Imaging Radiology Impressions: [facility] Impressions Head CT 12/28/22 10:24 IMPRESSION: No acute intracranial process seen. Medications Medications Current Medications Acetaminophen (Acetaminophen 325 Mg Tablet) 650 mg PO Q6H PRN PRN Reason: Headache/Pain Mild Scale (1-3) Al Hydroxide/Mg Hydroxide (Magnesium Hydrox/Alum Hydrox 30 Ml Oral.Susp) 30 ml PO Q6H PRN PRN Reason: Heartburn/Nausea Hydroxyzine HCl (Hydroxyzine Hcl 25 Mg Tablet) 25 mg PO Q6H PRN PRN Reason: Anxiety Last Admin: 12/24/22 15:30 Dose: 25 mg Magnesium Hydroxide (Milk Of Magnesia 30 Ml Oral.Susp) 30 ml PO DAILY PRN PRN Reason: Constipation Multivitamins/Vitamin C (Multivitamin Tablet) 1 tab PO DAILY [facility] Last Admin: 12/30/22 10:04 Dose: Not Given Nicotine Polacrilex (Nicotine Polacrilex Lozenge 4 Mg Lozenge) 4 mg BUCCAL Q2H PRN PRN Reason: Nicotine Cravings Last Admin: 12/30/22 17:00 Dose: 4 mg Nicotine Polacrilex (Nicotine Polacrilex 2 Mg Gum) 2 mg BUCCAL Q2H PRN PRN Reason: Nicotine Cravings Last Admin: 12/26/22 12:08 Dose: 2 mg Olanzapine (Olanzapine 10 Mg Tablet) 10 mg PO BID PRN PRN Reason: david, psychosis Thiamine HCl (Thiamine Hcl 100 Mg Tablet) 100 mg PO DAILY [facility] Last Admin: 12/30/22 10:05 Dose: Not Given Trazodone HCl (Trazodone Hcl 50 Mg Tablet) 50 mg PO BEDTIME MRX1 PRN PRN Reason: Insomnia Allergies Allergies Allergy/AdvReac Type Severity Reaction Status Date / Time No Known Allergies Allergy Verified 12/18/22 20:52 Assessment & Plan Assessment & Plan (1) Bipolar disorder with severe david: Status: Acute Code(s): F31.13 - Bipolar disorder, current episode manic without psychotic features, severe Plan 12/30/22- Observe, monitor, court 01/01. Continues to refuse treatment. Reason for contiued inpatient stay Substantial Risk for: inability to function Time Spent With Patient Time: Total time managing care of this patient today ____ minutes.
[2022-12-30 21:50] VITALS: BP 120/78; PULSE 91; TEMP 35.6
[2022-12-31] MEDS: Nicotine Polacrilex Lozenge 4 MG LOZENGE BUCCAL ×7 (00:29→18:59)
[2022-12-31] MEDS: Nicotine Polacrilex 2 MG GUM BUCCAL ×3 (08:23→13:23)
[2022-12-31 09:26] VITALS: BP 146/88; PULSE 100; RESP 16; TEMP 36.6; O2SAT 99
[2022-12-31] MEDS: Multivitamin TABLET 1 TAB PO (09:55)
[2022-12-31] MEDS: Thiamine HCL 100 MG TABLET PO (09:55)
--- NOTE | 2022-12-31 16:41 | HO.PSYCHPN ---
Subjective Subjective Date of Service: 12/31/22 Reason For Visit: david Subjective Notes: Section 7 Healthcare Proxy: No Guardianship: No Medical Problems Affecting Mental Status: No Interim History: Labile. Continues to decline treatment. Refuses to meet with team or tw. If you are not a siebel administrator, go. Hyperactive, hyperalert, overstimulated and involved in several activities. Team reports pt had painted the counter by the sink in the kitchen without rationale. Conflicted with team. Poor boundaries and involvement in others treatment plans. Presents as manic with periods of disorganization, organization, labile mood and poor modulation. Solid Waste Disposal Manager informed at the end of the day today that pt had terminated with her court appointed state attorney and wants to represent herself. This is a concern as given her presentation, support is needed to represent her fully. Given current presentation, it does not appear she can do this comprehensively without the assistance of her state attorney. Medication Compliance: No Side effects from medications: No Attending Groups: Intermittent Review of Systems Acute medical concerns: No Medical Review of Systems: unchanged Mental Status Exam Mental Status Exam Patient Appearance: Appropriate Patient Orientation: Person, Place, Time and Situation Level of Consciousness: Alert Patient Behavior: Guarded, Talkative, Hyperactive, Suspicious, Restless, Resistive to Care, Distractible, Good Eye Contact and Impulsive Mood Description: Labile Affect Description: Labile Patient Cognition Impaired: No Ability to Follow Directions: Fair Speech Pattern: Spontaneous Speech Memory Description: Episodic Impaired Hallucinations: None Delusions: Not Present Thought Process: Racing and Distracted Thought Content: positive for Racing, positive for Circumstantial, positive for Tangential, positive for Suicidal Ideation (denies) and positive for Homicidal Ideation (denies) Depressive Symptoms: Increased Irritability and Thoughts of /Suicide (denies) Abnormal Motor Activity Signs and Symptoms: Restlessness Judgement: Poor Diagnostics Vital Signs (24Hr): Vital Signs - 24 hr 12/30/22 21:50 12/31/22 09:26 Temperature 96.1 F L 97.8 F Pulse Rate 91 100 Respiratory Rate 16 Blood Pressure 120/78 146/88 H Pulse Oximetry 99 BMI result Body Mass Index 27.2 Labs 12/18/22 21:22 12/18/22 21:22 Imaging Radiology Impressions: [facility] Impressions Head CT 12/28/22 10:24 IMPRESSION: No acute intracranial process seen. Medications Medications Current Medications Acetaminophen (Acetaminophen 325 Mg Tablet) 650 mg PO Q6H PRN PRN Reason: Headache/Pain Mild Scale (1-3) Al Hydroxide/Mg Hydroxide (Magnesium Hydrox/Alum Hydrox 30 Ml Oral.Susp) 30 ml PO Q6H PRN PRN Reason: Heartburn/Nausea Hydroxyzine HCl (Hydroxyzine Hcl 25 Mg Tablet) 25 mg PO Q6H PRN PRN Reason: Anxiety Last Admin: 12/24/22 15:30 Dose: 25 mg Magnesium Hydroxide (Milk Of Magnesia 30 Ml Oral.Susp) 30 ml PO DAILY PRN PRN Reason: Constipation Multivitamins/Vitamin C (Multivitamin Tablet) 1 tab PO DAILY [facility] Last Admin: 12/31/22 09:55 Dose: 1 tab Nicotine Polacrilex (Nicotine Polacrilex Lozenge 4 Mg Lozenge) 4 mg BUCCAL Q2H PRN PRN Reason: Nicotine Cravings Last Admin: 12/31/22 16:03 Dose: 4 mg Nicotine Polacrilex (Nicotine Polacrilex 2 Mg Gum) 2 mg BUCCAL Q2H PRN PRN Reason: Nicotine Cravings Last Admin: 12/31/22 13:23 Dose: 2 mg Olanzapine (Olanzapine 10 Mg Tablet) 10 mg PO BID PRN PRN Reason: david, psychosis Thiamine HCl (Thiamine Hcl 100 Mg Tablet) 100 mg PO DAILY [facility] Last Admin: 12/31/22 09:55 Dose: 100 mg Trazodone HCl (Trazodone Hcl 50 Mg Tablet) 50 mg PO BEDTIME MRX1 PRN PRN Reason: Insomnia Allergies Allergies Allergy/AdvReac Type Severity Reaction Status Date / Time No Known Allergies Allergy Verified 12/18/22 20:52 Assessment & Plan Assessment & Plan (1) Bipolar disorder with severe david: Status: Acute Code(s): F31.13 - Bipolar disorder, current episode manic without psychotic features, severe Plan 12/31/22- Observe, monitor, court 01/01. Continues to refuse treatment. Informed Consent: further education needed Reason for contiued inpatient stay Substantial Risk for: rapid decompensation Time Spent With Patient Time: Total time managing care of this patient today ____ minutes.
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
--- NOTE | 2022-12-31 22:55 | PC.NURSE ---
Pt had a chair removed from her room late ion shift around 2230 after using chair to barricade room twice during shift. Pt said she was barricading door because she was afraid of certain staff members.
[2023-01-01] MEDS: Nicotine Polacrilex Lozenge 4 MG LOZENGE BUCCAL ×8 (02:26→20:42)
[2023-01-01] MEDS: Nicotine Polacrilex 2 MG GUM BUCCAL ×3 (06:58→19:14)
[2023-01-01] MEDS: Multivitamin TABLET 1 TAB PO (09:07)
[2023-01-01] MEDS: Thiamine HCL 100 MG TABLET PO (09:07)
[2023-01-01 09:11] VITALS: BP 106/69; PULSE 87; RESP 16; TEMP 36.1; O2SAT 97
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
--- NOTE | 2023-01-01 16:26 | HO.PSYCHPN ---
Subjective Subjective Date of Service: 01/01/23 Reason For Visit: david Subjective Notes: Section 8 Healthcare Proxy: No Guardianship: No Medical Problems Affecting Mental Status: No Interim History: Court date completed. Section VIII approved. Pt present for the entire process-appropriate in testifying, with grandiosity and tangential moments. No behavioral loss of control with any disagreements of her perspective. Will begin treatment. Medication Compliance: No Side effects from medications: No Attending Groups: Intermittent Review of Systems Acute medical concerns: No Medical Review of Systems: unchanged Mental Status Exam Mental Status Exam Patient Appearance: Appropriate Patient Orientation: Person, Place, Time and Situation Level of Consciousness: Alert Patient Behavior: Guarded, Talkative, Hyperactive, Suspicious, Restless, Resistive to Care, Distractible, Good Eye Contact and Impulsive Mood Description: Labile Affect Description: Labile Patient Cognition Impaired: No Ability to Follow Directions: Fair Speech Pattern: Spontaneous Speech Memory Description: Episodic Impaired Hallucinations: None Delusions: Not Present Thought Process: Racing and Distracted Thought Content: positive for Racing, positive for Circumstantial, positive for Tangential, positive for Suicidal Ideation (denies) and positive for Homicidal Ideation (denies) Depressive Symptoms: Increased Irritability and Thoughts of /Suicide (denies) Abnormal Motor Activity Signs and Symptoms: Restlessness Judgement: Poor Diagnostics Vital Signs (24Hr): Vital Signs - 24 hr 01/01/23 09:11 Temperature 96.9 F Pulse Rate 87 Respiratory Rate 16 Blood Pressure 106/69 Pulse Oximetry 97 Oxygen Delivery Method Room Air BMI result Body Mass Index 27.2 Labs 12/18/22 21:22 12/18/22 21:22 Imaging Radiology Impressions: ITS Impressions Head CT 12/28/22 10:24 IMPRESSION: No acute intracranial process seen. Medications Medications Current Medications Acetaminophen (Acetaminophen 325 Mg Tablet) 650 mg PO Q6H PRN PRN Reason: Headache/Pain Mild Scale (1-3) Al Hydroxide/Mg Hydroxide (Magnesium Hydrox/Alum Hydrox 30 Ml Oral.Susp) 30 ml PO Q6H PRN PRN Reason: Heartburn/Nausea Hydroxyzine HCl (Hydroxyzine Hcl 25 Mg Tablet) 25 mg PO Q6H PRN PRN Reason: Anxiety Last Admin: 12/24/22 15:30 Dose: 25 mg Magnesium Hydroxide (Milk Of Magnesia 30 Ml Oral.Susp) 30 ml PO DAILY PRN PRN Reason: Constipation Multivitamins/Vitamin C (Multivitamin Tablet) 1 tab PO DAILY [facility] Last Admin: 01/01/23 09:07 Dose: 1 tab Nicotine Polacrilex (Nicotine Polacrilex Lozenge 4 Mg Lozenge) 4 mg BUCCAL Q2H PRN PRN Reason: Nicotine Cravings Last Admin: 01/01/23 15:07 Dose: 4 mg Nicotine Polacrilex (Nicotine Polacrilex 2 Mg Gum) 2 mg BUCCAL Q2H PRN PRN Reason: Nicotine Cravings Last Admin: 01/01/23 13:18 Dose: 2 mg Olanzapine (Olanzapine 10 Mg Tablet) 10 mg PO BID PRN PRN Reason: david, psychosis Thiamine HCl (Thiamine Hcl 100 Mg Tablet) 100 mg PO DAILY [facility] Last Admin: 01/01/23 09:07 Dose: 100 mg Trazodone HCl (Trazodone Hcl 50 Mg Tablet) 50 mg PO BEDTIME MRX1 PRN PRN Reason: Insomnia Allergies Allergies Allergy/AdvReac Type Severity Reaction Status Date / Time No Known Allergies Allergy Verified 12/18/22 20:52 Assessment & Plan Assessment & Plan (1) Bipolar disorder with severe david: Status: Acute Code(s): F31.13 - Bipolar disorder, current episode manic without psychotic features, severe Plan 12/31/22- Observe, monitor, court 01/01. Continues to refuse treatment. 01/01/23- Section VIII approved by the court. Will initiate treatment when we receive final paperwork. Patient educated on: medication risk/benefits Informed Consent: further education needed Reason for contiued inpatient stay Substantial Risk for: rapid decompensation Time Spent With Patient Time: Total time managing care of this patient today ____ minutes.
[2023-01-01 18:00] VITALS: BP 124/68; PULSE 74; RESP 16; TEMP 36; O2SAT 99
[2023-01-02] MEDS: Nicotine Polacrilex Lozenge 4 MG LOZENGE BUCCAL ×8 (04:57→21:21)
[2023-01-02] MEDS: Nicotine Polacrilex 2 MG GUM BUCCAL (08:19)
[2023-01-02] MEDS: Thiamine HCL 100 MG TABLET PO (08:53)
[2023-01-02] MEDS: Multivitamin TABLET 1 TAB PO (08:53)
[2023-01-02 09:37] VITALS: BP 125/82; PULSE 101; RESP 18; TEMP 36.1; O2SAT 97
--- NOTE | 2023-01-02 18:01 | P.PNPSI_ITS ---
Subjective Subjective Date of Service: 01/02/23 Reason For Visit: david Subjective Notes: Section 8 Healthcare Proxy: No Guardianship: No Medical Problems Affecting Mental Status: No Interim History: Met with pt and Seth GRAFF to review plan. Long meeting where pt had much to say about her journey with hospitalizations, her feeling misunderstood and misinterpreted by professionals and her journey to get to know her father better prior to recent hospitalization in [place]. Discussed her perceptions of being traumatized throughout her life. Pt declined to discuss medications, refusing-information given on [place], Vraylar and her court information copies were given upon her request. Pt telling team she cannot take medications as she is . Negative testing on admission. Pt has refused two blood tests thus far over the past two days. She tells team she has not been committed, and is awaiting an insurance defense attorney and the [place] [address] to make a decision. Medication Compliance: No Side effects from medications: No Attending Groups: Intermittent Review of Systems Acute medical concerns: No Medical Review of Systems: unchanged Mental Status Exam Mental Status Exam Patient Appearance: Appropriate Patient Orientation: Person, Place, Time and Situation Level of Consciousness: Alert Patient Behavior: Guarded, Talkative, Hyperactive, Suspicious, Restless, Resisti ve to Care, Distractible, Good Eye Contact and Impulsive Mood Description: Labile Affect Description: Labile Patient Cognition Impaired: No Ability to Follow Directions: Fair Speech Pattern: Spontaneous Speech Memory Description: Episodic Impaired Hallucinations: None Delusions: Not Present Thought Process: Racing and Distracted Thought Content: positive for Racing, positive for Circumstantial, positive for Tangential, positive for Suicidal Ideation (denies) and positive for Homicidal Ideation (denies) Depressive Symptoms: Increased Irritability and Thoughts of /Suicide (denies) Abnormal Motor Activity Signs and Symptoms: Restlessness Judgement: Poor Diagnostics Vital Signs (24Hr): Vital Signs - 24 hr 01/02/23 09:37 Temperature 97.0 F Pulse Rate 101 H Respiratory Rate 18 Blood Pressure 125/82 Pulse Oximetry 97 Oxygen Delivery Method Room Air BMI result Body Mass Index 27.2 Labs 12/18/22 21:22 12/18/22 21:22 Imaging Radiology Impressions: ITS Impressions Head CT 12/28/22 10:24 IMPRESSION: No acute intracranial process seen. Medications Medications Current Medications Acetaminophen (Acetaminophen 325 Mg Tablet) 650 mg PO Q6H PRN PRN Reason: Headache/Pain Mild Scale (1-3) Al Hydroxide/Mg Hydroxide (Magnesium Hydrox/Alum Hydrox 30 Ml Oral.Susp) 30 ml PO Q6H PRN PRN Reason: Heartburn/Nausea Cariprazine (Cariprazine Hcl 3 Mg Capsule) 3 mg PO DAILY [facility] Hydroxyzine HCl (Hydroxyzine Hcl 25 Mg Tablet) 25 mg PO Q6H PRN PRN Reason: Anxiety Last Admin: 12/24/22 15:30 Dose: 25 mg [place] Carbonate ([place] Carbonate 300 Mg Capsule) 300 mg PO BID [facility] Magnesium Hydroxide (Milk Of Magnesia 30 Ml Oral.Susp) 30 ml PO DAILY PRN PRN Reason: Constipation Multivitamins/Vitamin C (Multivitamin Tablet) 1 tab PO DAILY [facility] Last Admin: 01/02/23 08:53 Dose: 1 tab Nicotine Polacrilex (Nicotine Polacrilex Lozenge 4 Mg Lozenge) 4 mg BUCCAL Q2H PRN PRN Reason: Nicotine Cravings Last Admin: 01/02/23 17:03 Dose: 4 mg Nicotine Polacrilex (Nicotine Polacrilex 2 Mg Gum) 2 mg BUCCAL Q2H PRN PRN Reason: Nicotine Cravings Last Admin: 01/02/23 08:19 Dose: 2 mg Olanzapine (Olanzapine 10 Mg Tablet) 10 mg PO BID PRN PRN Reason: david, psychosis Olanzapine (Olanzapine 10 Mg Vial) 10 mg IM DAILY PRN PRN Reason: if pt ref Marva per radha Thiamine HCl (Thiamine Hcl 100 Mg Tablet) 100 mg PO DAILY [facility] Last Admin: 01/02/23 08:53 Dose: 100 mg Trazodone HCl (Trazodone Hcl 50 Mg Tablet) 50 mg PO BEDTIME MRX1 PRN PRN Reason: Insomnia Allergies Allergies Allergy/AdvReac Type Severity Reaction Status Date / Time No Known Allergies Allergy Verified 12/18/22 20:52 Assessment & Plan Assessment & Plan (1) Bipolar disorder with severe david: Status: Acute Code(s): F31.13 - Bipolar disorder, current episode manic without psychotic features, severe Plan 12/31/22- Observe, monitor, court 01/01. Continues to refuse treatment. 01/01/23- Section VIII approved by the court. Will initiate treatment when we r eceive final paperwork. 01/02/23- [place], Vraylar ordered Pt given information She declines to discuss treatment with medication at this time. Patient educated on: therapeutic strategies Informed Consent: further education needed Reason for contiued inpatient stay Substantial Risk for: rapid decompensation Time Spent With Patient Time: Total time managing care of this patient today ____ minutes.
[2023-01-03] MEDS: Nicotine Polacrilex Lozenge 4 MG LOZENGE BUCCAL ×6 (00:01→18:59)
[2023-01-03] MEDS: Nicotine Polacrilex 2 MG GUM BUCCAL ×2 (00:59→06:15)
[2023-01-03 06:00] VITALS: RESP 18
[2023-01-03] MEDS: OLANZapine 10 MG VIAL IM (08:53)
--- NOTE | 2023-01-03 12:24 | HO.PSYCHPN ---
Subjective Subjective Date of Service: 01/03/23 Reason For Visit: david Interim History: Met with patient; discussed with team; discussed case with primary DRYWALL PROFESSIONAL. provider Patient remains disorganized in speech and behavior and difficult with which to engage. Patient has been refusing court-ordered medication and today received Zyprexa IM instead. On approach patient said she did not want to talk with freelance copywriter; freelance copywriter explained the court order for medication and the subsequent IM injections for refusal. Patient said that it is on Will full to force her to take medications against her will and repeats that this is per [facility]. Mental Status Exam Mental Status Exam Narrative: Pt is alert and oriented; behavior is manic, guarded, not cooperative; patient is not in distress; dressed in casual attire, disheveled; mood is described as irritable and affect congruent; limited eye contact; Speech is pressured, often loud; intermittent psychomotor agitation present; thought process is goal directed but overall disorganized, perseverative; Thought content is on perseverative on wrongness of commitment; delusional thoughts; denies any SI/HI. Appears Internally preoccupied; Patients insight and judgment impaired Diagnostics Vital Signs (24Hr): Vital Signs - 24 hr 01/03/23 06:00 Respiratory Rate 18 BMI result Body Mass Index 27.2 Labs 12/18/22 21:22 12/18/22 21:22 Imaging Radiology Impressions: ITS Impressions Head CT 12/28/22 10:24 IMPRESSION: No acute intracranial process seen. Medications Medications Current Medications Acetaminophen (Acetaminophen 325 Mg Tablet) 650 mg PO Q6H PRN PRN Reason: Headache/Pain Mild Scale (1-3) Al Hydroxide/Mg Hydroxide (Magnesium Hydrox/Alum Hydrox 30 Ml Oral.Susp) 30 ml PO Q6H PRN PRN Reason: Heartburn/Nausea Cariprazine (Cariprazine Hcl 3 Mg Capsule) 3 mg PO DAILY [facility] Last Admin: 01/03/23 08:54 Dose: Not Given Hydroxyzine HCl (Hydroxyzine Hcl 25 Mg Tablet) 25 mg PO Q6H PRN PRN Reason: Anxiety Last Admin: 12/24/22 15:30 Dose: 25 mg [place] Carbonate ([place] Carbonate 300 Mg Capsule) 600 mg PO BEDTIME [facility] Magnesium Hydroxide (Milk Of Magnesia 30 Ml Oral.Susp) 30 ml PO DAILY PRN PRN Reason: Constipation Multivitamins/Vitamin C (Multivitamin Tablet) 1 tab PO DAILY [facility] Last Admin: 01/03/23 09:43 Dose: Not Given Nicotine Polacrilex (Nicotine Polacrilex Lozenge 4 Mg Lozenge) 4 mg BUCCAL Q2H PRN PRN Reason: Nicotine Cravings Last Admin: 01/03/23 08:32 Dose: 4 mg Nicotine Polacrilex (Nicotine Polacrilex 2 Mg Gum) 2 mg BUCCAL Q2H PRN PRN Reason: Nicotine Cravings Last Admin: 01/03/23 06:15 Dose: 2 mg Olanzapine (Olanzapine 10 Mg Tablet) 10 mg PO BID PRN PRN Reason: david, psychosis Olanzapine (Olanzapine 10 Mg Vial) 10 mg IM BID PRN PRN Reason: if ref PO Vraylar/lithium Thiamine HCl (Thiamine Hcl 100 Mg Tablet) 100 mg PO DAILY [facility] Last Admin: 01/03/23 09:43 Dose: Not Given Trazodone HCl (Trazodone Hcl 50 Mg Tablet) 50 mg PO BEDTIME MRX1 PRN PRN Reason: Insomnia Allergies Allergies Allergy/AdvReac Type Severity Reaction Status Date / Time No Known Allergies Allergy Verified 12/18/22 20:52 Assessment & Plan Assessment & Plan (1) Bipolar disorder with severe david: Status: Acute Code(s): F31.13 - Bipolar disorder, current episode manic without psychotic features, severe Plan 12/31/22- Observe, monitor, court 01/01. Continues to refuse treatment. 01/01/23- Section VIII approved by the court. Will initiate treatment when we receive final paperwork. 01/02/23- [place], Vraylar ordered Pt given information She declines to discuss treatment with medication at this time. 01/03 patient remains manic and disorganized; refusing court ordered meds and received Zyprexa IM; freelance copywriter discussed case with NATE Magdaleno who agrees to Zyprexa IM b.i.d. for refusal of either Vraylar in the morning or [place] at bedtime; freelance copywriter changed lithium to bedtime to consolidate dosing and potentially help with sleep. Nurse Specialist informed that test on admission negative Plan: Patient involuntary committed Court ordered medication; if refuses p.o. P.r.n. Zyprexa 10 mg IM b.i.d. for refusal of either lithium or Vraylar -Continue Vraylar 3 mg daily; if refuses give Zyprexa 10 mg IM -Continue lithium 600 mg at bedtime; if refuses give Zyprexa 10 mg IM Patient educated on: diagnosis and medication risk/benefits Informed Consent: does not understand Reason for contiued inpatient stay Substantial Risk for: inability to function Time Spent With Patient Time: Total time managing care of this patient today ____ minutes.
[2023-01-03] MEDS: Lithium Carbonate ER 300 MG TABLET.ER 600 MG PO (19:52)
[2023-01-04] MEDS: Nicotine Polacrilex Lozenge 4 MG LOZENGE BUCCAL ×9 (02:49→20:04)
[2023-01-04] MEDS: Nicotine Polacrilex 2 MG GUM BUCCAL (04:34)
[2023-01-04] MEDS: Cariprazine HCl 3 MG CAPSULE PO (07:53)
[2023-01-04 08:28] VITALS: BP 134/91; PULSE 114; RESP 18; TEMP 35.7; O2SAT 99
--- NOTE | 2023-01-04 10:35 | P.PNPSI_ITS ---
Subjective Subjective Date of Service: 01/04/23 Reason For Visit: david Interim History: Briefly met with patient; discussed with team Patient remains manic, guarded, intrusive and loud; would not talk with program writer other than to loudly repeat she demands in emergency hearing and that lawsuits will be filed. However patient did take scheduled medication last night and this morning though she did so while dolling out much verbal abuse; only sleeping a few hours. Mental Status Exam Mental Status Exam Narrative: Pt is alert and oriented; behavior is manic, guarded, not cooperative; patient is not in distress; dressed in casual attire, disheveled; mood is described as irritable and affect congruent; limited eye contact; Speech is pressured, often loud; intermittent psychomotor agitation present; thought process is goal directed but overall disorganized, perseverative; Thought content is on perseverative on wrongness of commitment; delusional thoughts; denies any SI/HI. Appears Internally preoccupied; Patients insight and judgment impaired Diagnostics Vital Signs (24Hr): Vital Signs - 24 hr 01/04/23 08:28 Temperature 96.2 F L Pulse Rate 114 H Respiratory Rate 18 Blood Pressure 134/91 H Pulse Oximetry 99 Oxygen Delivery Method Room Air BMI result Body Mass Index 27.2 Labs 12/18/22 21:22 12/18/22 21:22 Imaging Radiology Impressions: ITS Impressions Head CT 12/28/22 10:24 IMPRESSION: No acute intracranial process seen. Medications Medications Current Medications Acetaminophen (Acetaminophen 325 Mg Tablet) 650 mg PO Q6H PRN PRN Reason: Headache/Pain Mild Scale (1-3) Al Hydroxide/Mg Hydroxide (Magnesium Hydrox/Alum Hydrox 30 Ml Oral.Susp) 30 ml PO Q6H PRN PRN Reason: Heartburn/Nausea Cariprazine (Cariprazine Hcl 3 Mg Capsule) 3 mg PO DAILY [facility] Last Admin: 01/04/23 07:53 Dose: 3 mg Hydroxyzine HCl (Hydroxyzine Hcl 25 Mg Tablet) 25 mg PO Q6H PRN PRN Reason: Anxiety Last Admin: 12/24/22 15:30 Dose: 25 mg [place] Carbonate ([place] Carbonate Er 300 Mg Tablet.Er) 600 mg PO BEDTIME [facility] Last Admin: 01/03/23 19:52 Dose: 600 mg Magnesium Hydroxide (Milk Of Magnesia 30 Ml Oral.Susp) 30 ml PO DAILY PRN PRN Reason: Constipation Multivitamins/Vitamin C (Multivitamin Tablet) 1 tab PO DAILY [facility] Last Admin: 01/04/23 07:53 Dose: Not Given Nicotine Polacrilex (Nicotine Polacrilex Lozenge 4 Mg Lozenge) 4 mg BUCCAL Q2H PRN PRN Reason: Nicotine Cravings Last Admin: 01/04/23 09:07 Dose: 4 mg Nicotine Polacrilex (Nicotine Polacrilex 2 Mg Gum) 2 mg BUCCAL Q2H PRN PRN Reason: Nicotine Cravings Last Admin: 01/04/23 04:34 Dose: 2 mg Olanzapine (Olanzapine 10 Mg Tablet) 10 mg PO BID PRN PRN Reason: david, psychosis Olanzapine (Olanzapine 10 Mg Vial) 10 mg IM BID PRN PRN Reason: if ref PO Vraylar/lithium Thiamine HCl (Thiamine Hcl 100 Mg Tablet) 100 mg PO DAILY [facility] Last Admin: 01/04/23 07:53 Dose: Not Given Trazodone HCl (Trazodone Hcl 50 Mg Tablet) 50 mg PO BEDTIME MRX1 PRN PRN Reason: Insomnia Allergies Allergies Allergy/AdvReac Type Severity Reaction Status Date / Time No Known Allergies Allergy Verified 12/18/22 20:52 Assessment & Plan Assessment & Plan (1) Bipolar disorder with severe david: Status: Acute Code(s): F31.13 - Bipolar disorder, current episode manic without psychotic features, severe Plan 12/31/22- Observe, monitor, court 01/01. Continues to refuse treatment. 01/01/23- Section VIII approved by the court. Will initiate treatment when we receive final paperwork. 01/02/23- [place], Vraylar ordered Pt given information She declines to discuss treatment with medication at this time. 01/03 patient remains manic and disorganized; refusing court ordered meds and received Zyprexa IM; program writer discussed case with NATE Magdaleno who agrees to Zyprexa IM b.i.d. for refusal of either [place]lar in the morning or [place] at bedtime; program writer changed lithium to bedtime to consolidate dosing and potentially help with sleep. Account Manager Employee Benefits informed that test on admission negative 01/04 Patient remains manic, guarded, intrusive and loud; would not talk with program writer other than to loudly repeat she demands in emergency hearing and that lawsuits will be filed. However patient did take scheduled medication last night and this morning though she did so while dolling out much verbal abuse; only sleeping a few hours. Plan: Patient involuntary committed Court ordered medication; if refuses p.o. P.r.n. Zyprexa 10 mg IM b.i.d. for refusal of either lithium or Vraylar -Continue Vraylar 3 mg daily; if refuses give Zyprexa 10 mg IM -Continue lithium 600 mg at bedtime; if refuses give Zyprexa 10 mg IM Reason for contiued inpatient stay Substantial Risk for: inability to function Time Spent With Patient Time: Total time managing care of this patient today ____ minutes.
[2023-01-04] MEDS: Lithium Carbonate ER 300 MG TABLET.ER 600 MG PO (20:05)
[2023-01-04 20:51] VITALS: BP 128/78; PULSE 96; RESP 16; TEMP 36.4; O2SAT 99
[2023-01-05] MEDS: Nicotine Polacrilex Lozenge 4 MG LOZENGE BUCCAL ×6 (00:58→17:08)
[2023-01-05 09:03] VITALS: BP 126/79; PULSE 87; RESP 16; TEMP 36.2; O2SAT 98
[2023-01-05] MEDS: Thiamine HCL 100 MG TABLET PO (10:06)
[2023-01-05] MEDS: OLANZapine ODT 10 MG TAB.RAPDIS TRANSLINGU ×2 (10:07→20:37)
[2023-01-05] MEDS: Multivitamin TABLET 1 TAB PO (10:13)
--- NOTE | 2023-01-05 16:26 | P.PNPSI_ITS ---
Subjective Subjective Date of Service: 01/05/23 Reason For Visit: david Subjective Notes: Section 8 Interim History: Visable in milieu Interactive with peers, team. Verbally assaultive to tw, refused to meet, threatening, screaming anger. You will go to [employer] [facility] for keeping me here . Disagrees with Vraylar trial without rationale Vraylar changed to Olanzapine. Medication Compliance: Yes Side effects from medications: No Attending Groups: Intermittent Review of Systems Acute medical concerns: No Medical Review of Systems: unchanged Mental Status Exam Mental Status Exam Patient Appearance: Appropriate Patient Orientation: Person, Place, Time and Situation Level of Consciousness: Alert Patient Behavior: Guarded, Belligerent, Verbal Threats and Avoidant Mood Description: Hostile and Angry Affect Description: Hostile Patient Cognition Impaired: No Ability to Follow Directions: Fair Speech Pattern: Spontaneous Speech Memory Description: Episodic Impaired Hallucinations: None Delusions: Paranoid Ideation and Grandiose Thought Process: Distracted Thought Content: positive for Circumstantial Abnormal Motor Activity Signs and Symptoms: Aggression and Agitation Judgement: Poor Diagnostics Vital Signs (24Hr): Vital Signs - 24 hr 01/04/23 20:51 01/05/23 09:03 Temperature 97.6 F 97.2 F Pulse Rate 96 87 Respiratory Rate 16 16 Blood Pressure 128/78 126/79 Pulse Oximetry 99 98 Oxygen Delivery Method Room Air Room Air BMI result Body Mass Index 27.2 Labs 12/18/22 21:22 12/18/22 21:22 Imaging Radiology Impressions: ITS Impressions Head CT 12/28/22 10:24 IMPRESSION: No acute intracranial process seen. Medications Medications Current Medications Acetaminophen (Acetaminophen 325 Mg Tablet) 650 mg PO Q6H PRN PRN Reason: Headache/Pain Mild Scale (1-3) Al Hydroxide/Mg Hydroxide (Magnesium Hydrox/Alum Hydrox 30 Ml Oral.Susp) 30 ml PO Q6H PRN PRN Reason: Heartburn/Nausea Hydroxyzine HCl (Hydroxyzine Hcl 25 Mg Tablet) 25 mg PO Q6H PRN PRN Reason: Anxiety Last Admin: 12/24/22 15:30 Dose: 25 mg [place] Carbonate ([place] Carbonate Er 300 Mg Tablet.Er) 600 mg PO BEDTIME [facility] Last Admin: 01/04/23 20:05 Dose: 600 mg Magnesium Hydroxide (Milk Of Magnesia 30 Ml Oral.Susp) 30 ml PO DAILY PRN PRN Reason: Constipation Multivitamins/Vitamin C (Multivitamin Tablet) 1 tab PO DAILY [facility] Last Admin: 01/05/23 10:13 Dose: 1 tab Nicotine Polacrilex (Nicotine Polacrilex Lozenge 4 Mg Lozenge) 4 mg BUCCAL Q2H PRN PRN Reason: Nicotine Cravings Last Admin: 01/05/23 11:50 Dose: 4 mg Nicotine Polacrilex (Nicotine Polacrilex 2 Mg Gum) 2 mg BUCCAL Q2H PRN PRN Reason: Nicotine Cravings Last Admin: 01/04/23 04:34 Dose: 2 mg Olanzapine (Olanzapine 10 Mg Tablet) 10 mg PO BID PRN PRN Reason: david, psychosis Olanzapine (Olanzapine 10 Mg Vial) 10 mg IM BID PRN PRN Reason: if ref PO Vraylar/lithium Olanzapine (Olanzapine Odt 10 Mg Tab.Rapdis) 10 mg TRANSLINGU BID [facility] Thiamine HCl (Thiamine Hcl 100 Mg Tablet) 100 mg PO DAILY [facility] Last Admin: 01/05/23 10:06 Dose: 100 mg Trazodone HCl (Trazodone Hcl 50 Mg Tablet) 50 mg PO BEDTIME MRX1 PRN PRN Reason: Insomnia Allergies Allergies Allergy/AdvReac Type Severity Reaction Status Date / Time No Known Allergies Allergy Verified 12/18/22 20:52 Assessment & Plan Assessment & Plan (1) Bipolar disorder with severe david: Status: Acute Code(s): F31.13 - Bipolar disorder, current episode manic without psychotic features, severe Plan 12/31/22- Observe, monitor, court 01/01. Continues to refuse treatment. 01/01/23- [place] VIII approved by the court. Will initiate treatment when we receive final paperwork. 01/02/23- [place], Vraylar ordered Pt given information She declines to discuss treatment with medication at this time. 01/03 patient remains manic and disorganized; refusing court ordered meds and received Zyprexa IM; financial writer discussed case with NATE Magdaleno who agrees to Zyprexa IM b.i.d. for refusal of either [place]raylar in the morning or [place] at bedtime; financial writer changed lithium to bedtime to consolidate dosing and potentially help with sleep. Hospitalist informed that test on admission negative 01/04 Patient remains manic, guarded, intrusive and loud; would not talk with financial writer other than to loudly repeat she demands in emergency hearing and that lawsuits will be filed. However patient did take scheduled medication last night and this morning though she did so while dolling out much verbal abuse; only sleeping a few hours. 01/05: As noted 01/04, threatening, verbally assaultive, calmer overall in milieu and responsive to the structure. Plan: Patient involuntary committed Court ordered medication; if refuses p.o. P.r.n. Zyprexa 10 mg IM b.i.d. for refusal of either lithium or Vraylar -Continue Vraylar 3 mg daily; if refuses give Zyprexa 10 mg IM -Continue lithium 600 mg at bedtime; if refuses give Zyprexa 10 mg IM Informed Consent: further education needed Reason for contiued inpatient stay Substantial Risk for: rapid decompensation Time Spent With Patient Time: Total time managing care of this patient today ____ minutes.
[2023-01-05 18:00] VITALS: BP 124/80; PULSE 112; TEMP 36.6; O2SAT 97
[2023-01-05] MEDS: Nicotine Polacrilex 2 MG GUM BUCCAL (20:23)
[2023-01-05] MEDS: Lithium Carbonate ER 300 MG TABLET.ER 600 MG PO (20:36)
[2023-01-05] MEDS: hydrOXYzine HCL 25 MG TABLET PO (21:09)
[2023-01-05] MEDS: OLANZapine 10 MG TABLET PO (21:51)
[2023-01-06] MEDS: Nicotine Polacrilex 2 MG GUM BUCCAL (03:38)
[2023-01-06] MEDS: Nicotine Polacrilex Lozenge 4 MG LOZENGE BUCCAL ×7 (05:44→20:20)
[2023-01-06] MEDS: OLANZapine ODT 10 MG TAB.RAPDIS TRANSLINGU ×2 (07:50→19:00)
[2023-01-06] MEDS: Thiamine HCL 100 MG TABLET PO (07:50)
[2023-01-06] MEDS: Multivitamin TABLET 1 TAB PO (07:50)
[2023-01-06 08:27] VITALS: BP 125/74; PULSE 103; RESP 16; TEMP 36.2; O2SAT 97
[2023-01-06] MEDS: hydrOXYzine HCL 25 MG TABLET PO (09:33)
[2023-01-06] MEDS: Folic Acid 1 MG TABLET PO (09:35)
[2023-01-06] MEDS: hydrOXYzine HCL 50 MG TABLET PO ×2 (14:29→17:49)
[2023-01-06 18:00] VITALS: BP 122/78; PULSE 78; RESP 16; TEMP 36.5; O2SAT 98
[2023-01-06] MEDS: Lithium Carbonate ER 300 MG TABLET.ER 600 MG PO (18:59)
[2023-01-06] MEDS: traZODone HCL 50 MG TABLET PO ×2 (19:00→20:20)
--- NOTE | 2023-01-07 04:09 | P.PNPSI_ITS ---
Subjective Subjective Date of Service: 01/06/23 Reason For Visit: david Subjective Notes: Section 8 Healthcare Proxy: No Guardianship: No Medical Problems Affecting Mental Status: No Interim History: Quiet in milieu. Engaged in activity. Unable to approach pt who when approached screams, you f------ b---- . Working on her wedding invitations and sharing with staff, inviting them to her wedding. Asks to begin folic acid-ordered Medication Compliance: Yes Side effects from medications: No Attending Groups: Intermittent Review of Systems Acute medical concerns: No Medical Review of Systems: unchanged Mental Status Exam Mental Status Exam Patient Appearance: Appropriate Patient Orientation: Person, Place, Time and Situation Level of Consciousness: Alert Patient Behavior: Guarded, Belligerent, Verbal Threats and Avoidant Mood Description: Hostile and Angry Affect Description: Hostile Patient Cognition Impaired: No Ability to Follow Directions: Fair Speech Pattern: Spontaneous Speech Memory Description: Episodic Impaired Hallucinations: None Delusions: Paranoid Ideation and Grandiose Thought Process: Distracted Thought Content: positive for Circumstantial Abnormal Motor Activity Signs and Symptoms: Aggression and Agitation Judgement: Poor Diagnostics Vital Signs (24Hr): Vital Signs - 24 hr 01/06/23 08:27 01/06/23 18:00 Temperature 97.2 F 97.7 F Pulse Rate 103 H 78 Respiratory Rate 16 16 Blood Pressure 125/74 122/78 Pulse Oximetry 97 98 Oxygen Delivery Method Room Air Room Air BMI result Body Mass Index 27.2 Labs 12/18/22 21:22 12/18/22 21:22 Imaging Radiology Impressions: ITS Impressions Head CT 12/28/22 10:24 IMPRESSION: No acute intracranial process seen. Medications Medications Current Medications Acetaminophen (Acetaminophen 325 Mg Tablet) 650 mg PO Q6H PRN PRN Reason: Headache/Pain Mild Scale (1-3) Al Hydroxide/Mg Hydroxide (Magnesium Hydrox/Alum Hydrox 30 Ml Oral.Susp) 30 ml PO Q6H PRN PRN Reason: Heartburn/Nausea Folic Acid (Folic Acid 1 Mg Tablet) 1 mg PO DAILY [facility] Last Admin: 01/06/23 09:35 Dose: 1 mg Hydroxyzine HCl (Hydroxyzine Hcl 50 Mg Tablet) 50 mg PO Q4H PRN PRN Reason: Anxiety Last Admin: 01/06/23 17:49 Dose: 50 mg [place] Carbonate ([place] Carbonate Er 300 Mg Tablet.Er) 600 mg PO BEDTIME [facility] Last Admin: 01/06/23 18:59 Dose: 600 mg Magnesium Hydroxide (Milk Of Magnesia 30 Ml Oral.Susp) 30 ml PO DAILY PRN PRN Reason: Constipation Multivitamins/Vitamin C (Multivitamin Tablet) 1 tab PO DAILY [facility] Last Admin: 01/06/23 07:50 Dose: 1 tab Nicotine Polacrilex (Nicotine Polacrilex Lozenge 4 Mg Lozenge) 4 mg BUCCAL Q2H PRN PRN Reason: Nicotine Cravings Last Admin: 01/06/23 20:20 Dose: 4 mg Nicotine Polacrilex (Nicotine Polacrilex 2 Mg Gum) 2 mg BUCCAL Q2H PRN PRN Reason: Nicotine Cravings Last Admin: 01/06/23 03:38 Dose: 2 mg Olanzapine (Olanzapine 10 Mg Tablet) 10 mg PO BID PRN PRN Reason: david, psychosis Last Admin: 01/05/23 21:51 Dose: 10 mg Olanzapine (Olanzapine 10 Mg Vial) 10 mg IM BID PRN PRN Reason: if ref PO Vraylar/lithium Olanzapine (Olanzapine Odt 10 Mg Tab.Rapdis) 10 mg TRANSLINGU BID [facility] Last Admin: 01/06/23 19:00 Dose: 10 mg Thiamine HCl (Thiamine Hcl 100 Mg Tablet) 100 mg PO DAILY [facility] Last Admin: 01/06/23 07:50 Dose: 100 mg Trazodone HCl (Trazodone Hcl 50 Mg Tablet) 50 mg PO BEDTIME MRX1 PRN PRN Reason: Insomnia Last Admin: 01/06/23 20:20 Dose: 50 mg Allergies Allergies Allergy/AdvReac Type Severity Reaction Status Date / Time No Known Allergies Allergy Verified 12/18/22 20:52 Assessment & Plan Assessment & Plan (1) Bipolar disorder with severe david: Status: Acute Code(s): F31.13 - Bipolar disorder, current episode manic without psychotic features, severe Plan 12/31/22- Observe, monitor, court 01/01. Continues to refuse treatment. 01/01/23- Section VIII approved by the court. Will initiate treatment when we receive final paperwork. 01/02/23- [place], Vraylar ordered Pt given information She declines to discuss treatment with medication at this time. 01/03 patient remains manic and disorganized; refusing court ordered meds and received Zyprexa IM; auto service writer discussed case with NATE Magdaleno who agrees to Zyprexa IM b.i.d. for refusal of either Vraylar in the morning or [place] at bedtime; auto service writer changed lithium to bedtime to consolidate dosing and potentially help with sleep. Live In Housekeeper Nanny informed that test on admission negative 01/04 Patient remains manic, guarded, intrusive and loud; would not talk with auto service writer other than to loudly repeat she demands in emergency hearing and that lawsuits will be filed. However patient did take scheduled medication last night and this morning though she did so while dolling out much verbal abuse; only sleeping a few hours. 01/06/23- continue current plan Plan: Patient involuntary committed Court ordered medication; if refuses p.o. P.r.n. Zyprexa 10 mg IM b.i.d. for refusal of either lithium or Vraylar -Continue Vraylar 3 mg daily; if refuses give Zyprexa 10 mg IM -Continue lithium 600 mg at bedtime; if refuses give Zyprexa 10 mg IM Informed Consent: further education needed Reason for contiued inpatient stay Substantial Risk for: rapid decompensation Time Spent With Patient Time: Total time managing care of this patient today ____ minutes.
[2023-01-07] MEDS: Nicotine Polacrilex Lozenge 4 MG LOZENGE BUCCAL ×7 (05:10→20:01)
[2023-01-07 08:05] VITALS: BP 124/79; PULSE 97; RESP 16; TEMP 36.1; O2SAT 97
[2023-01-07] MEDS: OLANZapine ODT 10 MG TAB.RAPDIS TRANSLINGU ×2 (09:23→20:00)
[2023-01-07] MEDS: OLANZapine 10 MG TABLET PO (13:08)
[2023-01-07] MEDS: hydrOXYzine HCL 50 MG TABLET PO ×2 (14:38→20:01)
--- NOTE | 2023-01-07 16:34 | HO.PSYCHPN ---
Subjective Subjective Date of Service: 01/07/23 Reason For Visit: david Subjective Notes: Section 8 Healthcare Proxy: No Guardianship: No Medical Problems Affecting Mental Status: No Interim History: Review with nursing/team. Pt refuses to meet with this sports book writer. She offers verbal abuse when approached consistently. Team reports increase in alliance, appropriate interactions with them. Visable in milieu Received written communications from pt. 1. 01/05/23 dated- request to know all short and regional intermodal truck driver side effects for each of the medications she is currently being prescribed. Pt was given copies of Bill last week. She has access to all of this information in duplicate as requested. 2. 01/05/23 dated-formal request for an emergency hearing regarding the medications prescribed. Pt will meet with [facility] tax attorney this week to file Section 9B. She was given copies of Section 8 B when received last week. 3. 01/05/23 dated- long writing indicating questions about her commitment status, medication changes that were made, and changes. Currently following Section 8 B-pt did not want to take Vraylar. As a result this was changed to Olanzapine. This opinion pt communicated to team, and was responded to. Pt reports she will make a formal medical malpractice complaint. 4. 01/07/23 dated-request documentation which contains details of when I was put in a straight jacket in the Behavioral [facility] Unit- filed with human rights 5. 01/07/23 dated-request to see FORM TAMPER OPERATOR for absess on clitoris. Pt was seen and examined for this issue on 12/26/22 by Jeni Sun of [facility] gynecological assistant. Refer to consultation note. Medication Compliance: Yes Side effects from medications: No Attending Groups: Intermittent Review of Systems Acute medical concerns: No Medical Review of Systems: unchanged Mental Status Exam Mental Status Exam Patient Appearance: Appropriate Patient Orientation: Person, Place, Time and Situation Level of Consciousness: Alert Patient Behavior: Guarded, Belligerent, Verbal Threats and Avoidant Mood Description: Hostile and Angry Affect Description: Hostile Patient Cognition Impaired: No Ability to Follow Directions: Fair Speech Pattern: Spontaneous Speech Memory Description: Episodic Impaired Hallucinations: None Delusions: Paranoid Ideation and Grandiose Thought Process: Distracted Thought Content: positive for Circumstantial Abnormal Motor Activity Signs and Symptoms: Aggression and Agitation Judgement: Poor Diagnostics Vital Signs (24Hr): Vital Signs - 24 hr 01/06/23 18:00 01/07/23 08:05 Temperature 97.7 F 97 F Pulse Rate 78 97 Respiratory Rate 16 16 Blood Pressure 122/78 124/79 Pulse Oximetry 98 97 Oxygen Delivery Method Room Air Room Air BMI result Body Mass Index 27.2 Labs 12/18/22 21:22 12/18/22 21:22 Imaging Radiology Impressions: ITS Impressions Head CT 12/28/22 10:24 IMPRESSION: No acute intracranial process seen. Medications Medications Current Medications Acetaminophen (Acetaminophen 325 Mg Tablet) 650 mg PO Q6H PRN PRN Reason: Headache/Pain Mild Scale (1-3) Al Hydroxide/Mg Hydroxide (Magnesium Hydrox/Alum Hydrox 30 Ml Oral.Susp) 30 ml PO Q6H PRN PRN Reason: Heartburn/Nausea Folic Acid (Folic Acid 1 Mg Tablet) 1 mg PO DAILY [facility] Last Admin: 01/07/23 09:25 Dose: Not Given Hydroxyzine HCl (Hydroxyzine Hcl 50 Mg Tablet) 50 mg PO Q4H PRN PRN Reason: Anxiety Last Admin: 01/07/23 14:38 Dose: 50 mg [place] Carbonate ([place] Carbonate Er 300 Mg Tablet.Er) 600 mg PO BEDTIME [facility] Last Admin: 01/06/23 18:59 Dose: 600 mg Magnesium Hydroxide (Milk Of Magnesia 30 Ml Oral.Susp) 30 ml PO DAILY PRN PRN Reason: Constipation Multivitamins/Vitamin C (Multivitamin Tablet) 1 tab PO DAILY [facility] Last Admin: 01/07/23 09:25 Dose: Not Given Nicotine Polacrilex (Nicotine Polacrilex Lozenge 4 Mg Lozenge) 4 mg BUCCAL Q2H PRN PRN Reason: Nicotine Cravings Last Admin: 01/07/23 15:56 Dose: 4 mg Nicotine Polacrilex (Nicotine Polacrilex 2 Mg Gum) 2 mg BUCCAL Q2H PRN PRN Reason: Nicotine Cravings Last Admin: 01/06/23 03:38 Dose: 2 mg Olanzapine (Olanzapine 10 Mg Tablet) 10 mg PO BID PRN PRN Reason: david, psychosis Last Admin: 01/07/23 13:08 Dose: 10 mg Olanzapine (Olanzapine 10 Mg Vial) 10 mg IM BID PRN PRN Reason: if ref PO Vraylar/lithium Olanzapine (Olanzapine Odt 10 Mg Tab.Rapdis) 10 mg TRANSLINGU BID [facility] Last Admin: 01/07/23 09:23 Dose: 10 mg Thiamine HCl (Thiamine Hcl 100 Mg Tablet) 100 mg PO DAILY [facility] Last Admin: 01/07/23 09:25 Dose: Not Given Trazodone HCl (Trazodone Hcl 50 Mg Tablet) 50 mg PO BEDTIME MRX1 PRN PRN Reason: Insomnia Last Admin: 01/06/23 20:20 Dose: 50 mg Allergies Allergies Allergy/AdvReac Type Severity Reaction Status Date / Time No Known Allergies Allergy Verified 12/18/22 20:52 Assessment & Plan Assessment & Plan (1) Bipolar disorder with severe david: Status: Acute Code(s): F31.13 - Bipolar disorder, current episode manic without psychotic features, severe Plan 12/31/22- Observe, monitor, court 01/01. Continues to refuse treatment. 01/01/23- Section VIII approved by the court. Will initiate treatment when we receive final paperwork. 01/02/23- [place], Vraylar ordered Pt given information She declines to discuss treatment with medication at this time. 01/03 patient remains manic and disorganized; refusing court ordered meds and received Zyprexa IM; sports book writer discussed case with NATE Magdaleno who agrees to Zyprexa IM b.i.d. for refusal of either Vraylar in the morning or [place] at bedtime; sports book writer changed lithium to bedtime to consolidate dosing and potentially help with sleep. Food Writer informed that test on admission negative 01/04 Patient remains manic, guarded, intrusive and loud; would not talk with sports book writer other than to loudly repeat she demands in emergency hearing and that lawsuits will be filed. However patient did take scheduled medication last night and this morning though she did so while dolling out much verbal abuse; only sleeping a few hours. 01/06/23- continue current plan 01/07/23- continue current plan Plan: Patient involuntary committed Court ordered medication; if refuses p.o. P.r.n. Zyprexa 10 mg IM b.i.d. for refusal of either lithium or Vraylar -Continue Vraylar 3 mg daily; if refuses give Zyprexa 10 mg IM -Continue lithium 600 mg at bedtime; if refuses give Zyprexa 10 mg IM Informed Consent: further education needed Reason for contiued inpatient stay Substantial Risk for: harm to self, harm to others, inability to function and rapid decompensation Time Spent With Patient Time: Total time managing care of this patient today ____ minutes.
[2023-01-07] MEDS: LORazepam 0.5 MG TABLET PO (17:30)
[2023-01-07] MEDS: Lithium Carbonate ER 300 MG TABLET.ER 600 MG PO (20:00)
[2023-01-08] MEDS: Nicotine Polacrilex Lozenge 4 MG LOZENGE BUCCAL ×8 (04:26→21:35)
[2023-01-08] MEDS: LORazepam 0.5 MG TABLET PO ×3 (06:42→15:57)
[2023-01-08] MEDS: Thiamine HCL 100 MG TABLET PO (08:28)
[2023-01-08] MEDS: Multivitamin TABLET 1 TAB PO (08:28)
[2023-01-08] MEDS: Folic Acid 1 MG TABLET PO (08:28)
[2023-01-08] MEDS: OLANZapine ODT 10 MG TAB.RAPDIS TRANSLINGU ×2 (08:28→21:31)
[2023-01-08] MEDS: hydrOXYzine HCL 50 MG TABLET PO ×2 (09:00→14:20)
[2023-01-08 09:02] VITALS: BP 102/67; PULSE 101; RESP 18; TEMP 36.2; O2SAT 100
[2023-01-08] MEDS: OLANZapine 10 MG TABLET PO (13:11)
--- NOTE | 2023-01-08 20:09 | HO.PSYCHPN ---
Subjective Subjective Date of Service: 01/08/23 Reason For Visit: david Subjective Notes: Section 8 Healthcare Proxy: No Guardianship: No Medical Problems Affecting Mental Status: No Interim History: Continues to refuse to meet with this commercial loan underwriter. Written requests per team are more in line with her needs-asking to check her messages, asking for personal items, asking about med options for anxiety, wanting to check to see if she was hired for a new job. Team reports some mild improvement. Less outburst based behaviors, less caustic interactions. Medication Compliance: Yes Side effects from medications: No Attending Groups: Intermittent Review of Systems Acute medical concerns: No Medical Review of Systems: unchanged Mental Status Exam Mental Status Exam Patient Appearance: Appropriate Patient Orientation: Person, Place, Time and Situation Level of Consciousness: Alert Patient Behavior: Guarded, Belligerent, Verbal Threats and Avoidant Mood Description: Hostile and Angry Affect Description: Hostile Patient Cognition Impaired: No Ability to Follow Directions: Fair Speech Pattern: Spontaneous Speech Memory Description: Episodic Impaired Hallucinations: None Delusions: Paranoid Ideation and Grandiose Thought Process: Distracted Thought Content: positive for Circumstantial Abnormal Motor Activity Signs and Symptoms: Aggression and Agitation Judgement: Poor Diagnostics Vital Signs (24Hr): Vital Signs - 24 hr 01/08/23 09:02 Temperature 97.2 F Pulse Rate 101 H Respiratory Rate 18 Blood Pressure 102/67 Pulse Oximetry 100 Oxygen Delivery Method Room Air BMI result Body Mass Index 27.2 Labs 12/18/22 21:22 12/18/22 21:22 Imaging Radiology Impressions: ITS Impressions Head CT 12/28/22 10:24 IMPRESSION: No acute intracranial process seen. Medications Medications Current Medications Acetaminophen (Acetaminophen 325 Mg Tablet) 650 mg PO Q6H PRN PRN Reason: Headache/Pain Mild Scale (1-3) Al Hydroxide/Mg Hydroxide (Magnesium Hydrox/Alum Hydrox 30 Ml Oral.Susp) 30 ml PO Q6H PRN PRN Reason: Heartburn/Nausea Folic Acid (Folic Acid 1 Mg Tablet) 1 mg PO DAILY [facility] Last Admin: 01/08/23 08:28 Dose: 1 mg Hydroxyzine HCl (Hydroxyzine Hcl 50 Mg Tablet) 50 mg PO Q4H PRN PRN Reason: Anxiety Last Admin: 01/08/23 14:20 Dose: 50 mg [place] Carbonate ([place] Carbonate Er 300 Mg Tablet.Er) 600 mg PO BEDTIME [facility] Last Admin: 01/07/23 20:00 Dose: 600 mg Lorazepam (Lorazepam 0.5 Mg Tablet) 0.5 mg PO Q4H PRN PRN Reason: anxiety, agitation Last Admin: 01/08/23 15:57 Dose: 0.5 mg Magnesium Hydroxide (Milk Of Magnesia 30 Ml Oral.Susp) 30 ml PO DAILY PRN PRN Reason: Constipation Multivitamins/Vitamin C (Multivitamin Tablet) 1 tab PO DAILY [facility] Last Admin: 01/08/23 08:28 Dose: 1 tab Nicotine Polacrilex (Nicotine Polacrilex Lozenge 4 Mg Lozenge) 4 mg BUCCAL Q2H PRN PRN Reason: Nicotine Cravings Last Admin: 01/08/23 17:58 Dose: 4 mg Nicotine Polacrilex (Nicotine Polacrilex 2 Mg Gum) 2 mg BUCCAL Q2H PRN PRN Reason: Nicotine Cravings Last Admin: 01/06/23 03:38 Dose: 2 mg Olanzapine (Olanzapine 10 Mg Tablet) 10 mg PO BID PRN PRN Reason: david, psychosis Last Admin: 01/08/23 13:11 Dose: 10 mg Olanzapine (Olanzapine 10 Mg Vial) 10 mg IM BID PRN PRN Reason: if ref PO Vraylar/lithium Olanzapine (Olanzapine Odt 10 Mg Tab.Rapdis) 10 mg TRANSLINGU BID [facility] Last Admin: 01/08/23 08:28 Dose: 10 mg Thiamine HCl (Thiamine Hcl 100 Mg Tablet) 100 mg PO DAILY [facility] Last Admin: 01/08/23 08:28 Dose: 100 mg Trazodone HCl (Trazodone Hcl 50 Mg Tablet) 50 mg PO BEDTIME MRX1 PRN PRN Reason: Insomnia Last Admin: 01/06/23 20:20 Dose: 50 mg Allergies Allergies Allergy/AdvReac Type Severity Reaction Status Date / Time No Known Allergies Allergy Verified 12/18/22 20:52 Assessment & Plan Assessment & Plan (1) Bipolar disorder with severe david: Status: Acute Code(s): F31.13 - Bipolar disorder, current episode manic without psychotic features, severe Plan 12/31/22- Observe, monitor, court 01/01. Continues to refuse treatment. 01/01/23- Section VIII approved by the court. Will initiate treatment when we receive final paperwork. 01/02/23- [place], Vraylar ordered Pt given information She declines to discuss treatment with medication at this time. 01/03 patient remains manic and disorganized; refusing court ordered meds and received Zyprexa IM; commercial loan underwriter discussed case with NATE Magdaleno who agrees to Zyprexa IM b.i.d. for refusal of either Vraylar in the morning or [place] at bedtime; commercial loan underwriter changed lithium to bedtime to consolidate dosing and potentially help with sleep. Water Systems Designer informed that test on admission negative 01/04 Patient remains manic, guarded, intrusive and loud; would not talk with commercial loan underwriter other than to loudly repeat she demands in emergency hearing and that lawsuits will be filed. However patient did take scheduled medication last night and this morning though she did so while dolling out much verbal abuse; only sleeping a few hours. 01/06/23- continue current plan 01/07/23- continue current plan 01/08/23- labs, continue current plan Plan: Patient involuntary committed Court ordered medication; if refuses p.o. P.r.n. Zyprexa 10 mg IM b.i.d. for refusal of either lithium or Vraylar -Continue Vraylar 3 mg daily; if refuses give Zyprexa 10 mg IM -Continue lithium 600 mg at bedtime; if refuses give Zyprexa 10 mg IM Informed Consent: further education needed Reason for contiued inpatient stay Substantial Risk for: rapid decompensation Time Spent With Patient Time: Total time managing care of this patient today ____ minutes.
[2023-01-08] MEDS: Lithium Carbonate ER 300 MG TABLET.ER 600 MG PO (21:31)
[2023-01-09] MEDS: Nicotine Polacrilex 2 MG GUM BUCCAL (02:23)
[2023-01-09] MEDS: hydrOXYzine HCL 50 MG TABLET PO ×2 (04:12→09:49)
[2023-01-09] MEDS: LORazepam 0.5 MG TABLET PO ×3 (04:37→17:47)
[2023-01-09] MEDS: Nicotine Polacrilex Lozenge 4 MG LOZENGE BUCCAL ×6 (04:37→20:51)
[2023-01-09 06:00] VITALS: BP 104/66; PULSE 75; RESP 16; TEMP 36.4; O2SAT 98
[2023-01-09] MEDS: Thiamine HCL 100 MG TABLET PO (08:22)
[2023-01-09] MEDS: Multivitamin TABLET 1 TAB PO (08:22)
[2023-01-09] MEDS: Folic Acid 1 MG TABLET PO (08:22)
[2023-01-09] MEDS: OLANZapine ODT 10 MG TAB.RAPDIS TRANSLINGU ×2 (08:23→20:47)
--- NOTE | 2023-01-09 10:22 | HO.PSYCHPN ---
Subjective Subjective Date of Service: 01/09/23 Reason For Visit: david Interim History: met with patient; discussed in teams; reviewed progress notes Pt refused labs/lithium level today which is a necessary as medication is court ordered and likely at a subtherapeutic blood level given patients continued manic behavior and needs to be increased, before which need to assess kidney function and med tolerability. Plate Worker met with patient who changed her mind and said she would get blood level and asked if blood hCG could be added to lab work to which mortgage or loan underwriter agreed. 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 Mental Status Exam Mental Status Exam Narrative: Pt is alert and oriented; behavior is intermittently cooperative vs guarded; can be friendly; manic, pressured speech; patient is not in distress; dressed in casual attire with unkempt hair but adequate hygiene; mood is described as good and affect constricted; eye contact appropriate; Speech hyperverbal and moderately pressured; normal volume and prosody; some psychomotor agitation present; thought process can be goal oriented but is circumstantial and tangential; Thought content is on focused on on fair admission, wrongness of court-ordered medication and some grandiosity; denies any SI/HI. Patients insight and judgment impaired Diagnostics Vital Signs (24Hr): Vital Signs - 24 hr 01/09/23 06:00 Temperature 97.5 F Pulse Rate 75 Respiratory Rate 16 Blood Pressure 104/66 Pulse Oximetry 98 BMI result Body Mass Index 27.2 Labs 12/18/22 21:22 12/18/22 21:22 Imaging Radiology Impressions: ITS Impressions Head CT 12/28/22 10:24 IMPRESSION: No acute intracranial process seen. Medications Medications Current Medications Acetaminophen (Acetaminophen 325 Mg Tablet) 650 mg PO Q6H PRN PRN Reason: Headache/Pain Mild Scale (1-3) Al Hydroxide/Mg Hydroxide (Magnesium Hydrox/Alum Hydrox 30 Ml Oral.Susp) 30 ml PO Q6H PRN PRN Reason: Heartburn/Nausea Folic Acid (Folic Acid 1 Mg Tablet) 1 mg PO DAILY [facility] Last Admin: 01/09/23 08:22 Dose: 1 mg Hydroxyzine HCl (Hydroxyzine Hcl 50 Mg Tablet) 50 mg PO Q4H PRN PRN Reason: Anxiety Last Admin: 01/09/23 09:49 Dose: 50 mg [place] Carbonate ([place] Carbonate Er 300 Mg Tablet.Er) 600 mg PO BEDTIME [facility] Last Admin: 01/08/23 21:31 Dose: 600 mg Lorazepam (Lorazepam 0.5 Mg Tablet) 0.5 mg PO Q4H PRN PRN Reason: anxiety, agitation Last Admin: 01/09/23 09:49 Dose: 0.5 mg Magnesium Hydroxide (Milk Of Magnesia 30 Ml Oral.Susp) 30 ml PO DAILY PRN PRN Reason: Constipation Multivitamins/Vitamin C (Multivitamin Tablet) 1 tab PO DAILY [facility] Last Admin: 01/09/23 08:22 Dose: 1 tab Nicotine Polacrilex (Nicotine Polacrilex Lozenge 4 Mg Lozenge) 4 mg BUCCAL Q2H PRN PRN Reason: Nicotine Cravings Last Admin: 01/09/23 08:22 Dose: 4 mg Nicotine Polacrilex (Nicotine Polacrilex 2 Mg Gum) 2 mg BUCCAL Q2H PRN PRN Reason: Nicotine Cravings Last Admin: 01/09/23 02:23 Dose: 2 mg Olanzapine (Olanzapine 10 Mg Tablet) 10 mg PO BID PRN PRN Reason: david, psychosis Last Admin: 01/08/23 13:11 Dose: 10 mg Olanzapine (Olanzapine 10 Mg Vial) 10 mg IM BID PRN PRN Reason: if ref PO Vraylar/lithium Olanzapine (Olanzapine Odt 10 Mg Tab.Rapdis) 10 mg TRANSLINGU BID [facility] Last Admin: 01/09/23 08:23 Dose: 10 mg Thiamine HCl (Thiamine Hcl 100 Mg Tablet) 100 mg PO DAILY [facility] Last Admin: 01/09/23 08:22 Dose: 100 mg Trazodone HCl (Trazodone Hcl 50 Mg Tablet) 50 mg PO BEDTIME MRX1 PRN PRN Reason: Insomnia Last Admin: 01/06/23 20:20 Dose: 50 mg Allergies Allergies Allergy/AdvReac Type Severity Reaction Status Date / Time No Known Allergies Allergy Verified 12/18/22 20:52 Assessment & Plan Assessment & Plan (1) Bipolar disorder with severe david: Status: Acute Code(s): F31.13 - Bipolar disorder, current episode manic without psychotic features, severe Plan 12/31/22- Observe, monitor, court 01/01. Continues to refuse treatment. 01/01/23- Section VIII approved by the court. Will initiate treatment when we receive final paperwork. 01/02/23- [place], Vraylar ordered Pt given information She declines to discuss treatment with medication at this time. 01/03 patient remains manic and disorganized; refusing court ordered meds and received Zyprexa IM; mortgage or loan underwriter discussed case with NATE Magdaleno who agrees to Zyprexa IM b.i.d. for refusal of either Vraylar in the morning or [place] at bedtime; mortgage or loan underwriter changed lithium to bedtime to consolidate dosing and potentially help with sleep. Plate Worker informed that test on admission negative 01/04 Patient remains manic, guarded, intrusive and loud; would not talk with mortgage or loan underwriter other than to loudly repeat she demands in emergency hearing and that lawsuits will be filed. However patient did take scheduled medication last night and this morning though she did so while dolling out much verbal abuse; only sleeping a few hours. 01/06/23- continue current plan 01/07/23- continue current plan 01/08/23- labs, continue current plan 01/09 patient remains manic; initially refused blood draw for lithium level however did agree to it and lithium level found to be subtherapeutic; kidney function intact; TSH WNL. Given continued david will increase lithium dose Plan: Patient involuntary committed Court ordered medication; if refuses p.o. P.r.n. Zyprexa 10 mg IM b.i.d. for refusal of either lithium or Vraylar -Continue Vraylar 3 mg daily; if refuses give Zyprexa 10 mg IM -INCREASED TO lithium 900 mg at bedtime; if refuses give Zyprexa 10 mg IM Patient educated on: diagnosis and medication risk/benefits Informed Consent: does not understand and further education needed Reason for contiued inpatient stay Substantial Risk for: inability to function Time Spent With Patient Time: Total time managing care of this patient today ____ minutes.
[2023-01-09] MEDS: OLANZapine 10 MG TABLET PO (11:19)
[2023-01-09 12:36] LABS: HCG Quantitative < 2 mIU/mL; Lithium 0.27 mmol/L (0.60-1.20)
[2023-01-09 12:45] LABS: Anion Gap 14 (12-20); Blood Urea Nitrogen 10 mg/dL (9-16); Calcium 9.5 mg/dL (8.4-10.2); Carbon Dioxide 22 mmol/L (22-29); Chloride 110 mmol/L (96-108); Creatinine Clr Calc Pharmacy 100.1; Estimated Glomerular Filt Rate > 60; Glucose Random 93 mg/dL (60-115); Potassium 4.3 mmol/L (3.3-5.1); Sodium 142 mmol/L (135-145)
[2023-01-09 13:05] LABS: Thyroid Stimulating Hormone 2.63 uIU/mL (0.32-4.0)
[2023-01-09 17:44] VITALS: BP 132/80; PULSE 75; RESP 16; TEMP 36.1; O2SAT 98
[2023-01-09] MEDS: Lithium Carbonate ER 450 MG TABLET.ER 900 MG PO (20:47)
[2023-01-10] MEDS: Nicotine Polacrilex Lozenge 4 MG LOZENGE BUCCAL ×7 (02:13→19:21)
[2023-01-10] MEDS: LORazepam 0.5 MG TABLET PO (04:29)
[2023-01-10 07:00] VITALS: BMI 28.4
[2023-01-10] MEDS: Folic Acid 1 MG TABLET PO (08:41)
[2023-01-10] MEDS: Multivitamin TABLET 1 TAB PO (08:41)
[2023-01-10] MEDS: Thiamine HCL 100 MG TABLET PO (08:41)
[2023-01-10 08:58] VITALS: BP 121/78; PULSE 87; RESP 16; TEMP 36.2; O2SAT 97
[2023-01-10] MEDS: OLANZapine ODT 10 MG TAB.RAPDIS TRANSLINGU ×2 (09:29→19:21)
[2023-01-10] MEDS: OLANZapine 10 MG TABLET PO (13:35)
[2023-01-10] MEDS: hydrOXYzine HCL 50 MG TABLET PO ×2 (14:43→19:03)
--- NOTE | 2023-01-10 17:11 | HO.PSYCHPN ---
Subjective Subjective Date of Service: 01/10/23 Reason For Visit: david Interim History: Met with patient; discussed with staff Patient remains manic and without insight however she is much more pleasant on approach. Still not sleeping well. Patient had no complaints or requests other than saying it is illegal to keep her on the unit. Parcel Carrier did call patient's HR department at her request saying to mortgage or loan underwriter yeah call them...tell them whatever you want... that maybe I am not in my right mind to quit my job since the doctors here think I am crazy... Patient showed letter from HR and gave mortgage or loan underwriter the phone number. Parcel Carrier did call and communicated that is premature for employer to accept patients resignation at this time; rather this discussion should be postponed until patient is discharged. Mental Status Exam Mental Status Exam Narrative: Pt is alert and oriented; behavior is intermittently cooperative vs guarded; can be friendly; manic, pressured speech; patient is not in distress; dressed in casual attire with unkempt hair but adequate hygiene; mood is described as good and affect constricted; eye contact appropriate; Speech hyperverbal and moderately pressured; normal volume and prosody; some psychomotor agitation present; thought process can be goal oriented but is circumstantial and tangential; Thought content is on focused on on fair admission, wrongness of court-ordered medication and some grandiosity; denies any SI/HI. Patients insight and judgment impaired Diagnostics Vital Signs (24Hr): Vital Signs - 24 hr 01/09/23 17:44 01/10/23 08:58 Temperature 96.9 F 97.2 F Pulse Rate 75 87 Respiratory Rate 16 16 Blood Pressure 132/80 121/78 Pulse Oximetry 98 97 Oxygen Delivery Method Room Air Room Air BMI result Body Mass Index 28.4 Labs 12/18/22 21:22 01/09/23 11:45 Labs: Laboratory Results - last 48 hr 01/09/23 01/09/23 01/09/23 11:44 11:44 11:45 Sodium 142 Potassium 4.3 Chloride 110 H Carbon Dioxide 22 Anion Gap 14 BUN 10 Creatinine 0.82 Estim Creat Clear Calc 100.1 Estimated GFR > 60 Random Glucose 93 Calcium 9.5 TSH 2.63 Beta HCG, Quant < 2 [place] 0.27 L Imaging Radiology Impressions: ITS Impressions Head CT 12/28/22 10:24 IMPRESSION: No acute intracranial process seen. Medications Medications Current Medications Acetaminophen (Acetaminophen 325 Mg Tablet) 650 mg PO Q6H PRN PRN Reason: Headache/Pain Mild Scale (1-3) Al Hydroxide/Mg Hydroxide (Magnesium Hydrox/Alum Hydrox 30 Ml Oral.Susp) 30 ml PO Q6H PRN PRN Reason: Heartburn/Nausea Folic Acid (Folic Acid 1 Mg Tablet) 1 mg PO DAILY [facility] Last Admin: 01/10/23 08:41 Dose: 1 mg Hydroxyzine HCl (Hydroxyzine Hcl 50 Mg Tablet) 50 mg PO Q4H PRN PRN Reason: Anxiety Last Admin: 01/10/23 14:43 Dose: 50 mg [place] Carbonate ([place] Carbonate Er 450 Mg Tablet.Er) 900 mg PO BEDTIME [facility] Last Admin: 01/09/23 20:47 Dose: 900 mg Lorazepam (Lorazepam 0.5 Mg Tablet) 0.5 mg PO Q4H PRN PRN Reason: anxiety, agitation Last Admin: 01/10/23 04:29 Dose: 0.5 mg Magnesium Hydroxide (Milk Of Magnesia 30 Ml Oral.Susp) 30 ml PO DAILY PRN PRN Reason: Constipation Multivitamins/Vitamin C (Multivitamin Tablet) 1 tab PO DAILY [facility] Last Admin: 01/10/23 08:41 Dose: 1 tab Nicotine Polacrilex (Nicotine Polacrilex Lozenge 4 Mg Lozenge) 4 mg BUCCAL Q2H PRN PRN Reason: Nicotine Cravings Last Admin: 01/10/23 17:11 Dose: 4 mg Nicotine Polacrilex (Nicotine Polacrilex 2 Mg Gum) 2 mg BUCCAL Q2H PRN PRN Reason: Nicotine Cravings Last Admin: 01/09/23 02:23 Dose: 2 mg Olanzapine (Olanzapine 10 Mg Tablet) 10 mg PO BID PRN PRN Reason: david, psychosis Last Admin: 01/10/23 13:35 Dose: 10 mg Olanzapine (Olanzapine 10 Mg Vial) 10 mg IM BID PRN PRN Reason: if ref PO Vraylar/lithium Olanzapine (Olanzapine Odt 10 Mg Tab.Rapdis) 10 mg TRANSLINGU BID [facility] Last Admin: 01/10/23 09:29 Dose: 10 mg Thiamine HCl (Thiamine Hcl 100 Mg Tablet) 100 mg PO DAILY [facility] Last Admin: 01/10/23 08:41 Dose: 100 mg Trazodone HCl (Trazodone Hcl 50 Mg Tablet) 50 mg PO BEDTIME MRX1 PRN PRN Reason: Insomnia Last Admin: 01/06/23 20:20 Dose: 50 mg Allergies Allergies Allergy/AdvReac Type Severity Reaction Status Date / Time No Known Allergies Allergy Verified 12/18/22 20:52 Assessment & Plan Assessment & Plan (1) Bipolar disorder with severe david: Status: Acute Code(s): F31.13 - Bipolar disorder, current episode manic without psychotic features, severe Plan 12/31/22- Observe, monitor, court 01/01. Continues to refuse treatment. 01/01/23- [place] VIII approved by the court. Will initiate treatment when we receive final paperwork. 01/02/23- [place], Vraylar ordered Pt given information She declines to discuss treatment with medication at this time. 01/03 patient remains manic and disorganized; refusing court ordered meds and received Zyprexa IM; mortgage or loan underwriter discussed case with NATE Magdaleno who agrees to Zyprexa IM b.i.d. for refusal of either [place] in the morning or [place] at bedtime; mortgage or loan underwriter changed lithium to bedtime to consolidate dosing and potentially help with sleep. Parcel Carrier informed that test on admission negative 01/04 Patient remains manic, guarded, intrusive and loud; would not talk with mortgage or loan underwriter other than to loudly repeat she demands in emergency hearing and that lawsuits will be filed. However patient did take scheduled medication last night and this morning though she did so while dolling out much verbal abuse; only sleeping a few hours. 01/06/23- continue current plan 01/07/23- continue current plan 01/08/23- labs, continue current plan 01/09 patient remains manic; initially refused blood draw for lithium level however did agree to it and lithium level found to be subtherapeutic; kidney function intact; TSH WNL. Given continued david will increase lithium dose 01/11 patient is a little improved, much less guarded and verbally combative/assaultive; patient's lithium dose recently increased and so it is premature to make med adjustments at this time Plan: Patient involuntary committed Court ordered medication; if refuses p.o. P.r.n. Zyprexa 10 mg IM b.i.d. for refusal of either lithium or Vraylar -Continue Vraylar 3 mg daily; if refuses give Zyprexa 10 mg IM -INCREASED TO lithium 900 mg at bedtime; if refuses give Zyprexa 10 mg IM Patient educated on: diagnosis Reason for contiued inpatient stay Substantial Risk for: inability to function Time Spent With Patient Time: Total time managing care of this patient today ____ minutes.
[2023-01-10 18:00] VITALS: BP 123/78; PULSE 92; TEMP 36.4; O2SAT 96
[2023-01-10] MEDS: Lithium Carbonate ER 450 MG TABLET.ER 900 MG PO (19:21)
[2023-01-11] MEDS: Nicotine Polacrilex Lozenge 4 MG LOZENGE BUCCAL ×7 (03:39→19:35)
[2023-01-11 06:00] VITALS: BP 111/76; PULSE 104; RESP 16; TEMP 35.8; O2SAT 96
[2023-01-11] MEDS: OLANZapine ODT 10 MG TAB.RAPDIS TRANSLINGU ×2 (08:17→19:34)
[2023-01-11] MEDS: hydrOXYzine HCL 50 MG TABLET PO ×3 (08:58→17:43)
[2023-01-11] MEDS: OLANZapine 10 MG TABLET PO (10:02)
[2023-01-11] MEDS: LORazepam 0.5 MG TABLET PO ×2 (10:02→14:31)
--- NOTE | 2023-01-11 17:35 | HO.PSYCHPN ---
Subjective Subjective Date of Service: 01/11/23 Reason For Visit: david Interim History: Briefly Met with patient; discussed with team Patient showed me paper she wants to send to her lower; written on 1 of them was some history of substance abuse. Patient said that investigative writer could hold onto them however patient accepted them back. She remains manic and without insight but overall more cooperative Mental Status Exam Mental Status Exam Narrative: Pt is alert and oriented; behavior is intermittently cooperative vs guarded; can be friendly; manic, pressured speech; patient is not in distress; dressed in casual attire with unkempt hair but adequate hygiene; mood is described as good and affect constricted; eye contact appropriate; Speech hyperverbal and moderately pressured; normal volume and prosody; some psychomotor agitation present; thought process can be goal oriented but is circumstantial and tangential; Thought content is on focused on on fair admission, wrongness of court-ordered medication and some grandiosity; denies any SI/HI. Patients insight and judgment impaired Diagnostics Vital Signs (24Hr): Vital Signs - 24 hr 01/10/23 18:00 01/11/23 06:00 Temperature 97.6 F 96.5 F L Pulse Rate 92 104 H Respiratory Rate 16 Blood Pressure 123/78 111/76 Pulse Oximetry 96 96 Oxygen Delivery Method Room Air Room Air BMI result Body Mass Index 28.4 Labs 12/18/22 21:22 01/09/23 11:45 Imaging Radiology Impressions: ITS Impressions Head CT 12/28/22 10:24 IMPRESSION: No acute intracranial process seen. Medications Medications Current Medications Acetaminophen (Acetaminophen 325 Mg Tablet) 650 mg PO Q6H PRN PRN Reason: Headache/Pain Mild Scale (1-3) Al Hydroxide/Mg Hydroxide (Magnesium Hydrox/Alum Hydrox 30 Ml Oral.Susp) 30 ml PO Q6H PRN PRN Reason: Heartburn/Nausea Folic Acid (Folic Acid 1 Mg Tablet) 1 mg PO DAILY [facility] Last Admin: 01/11/23 08:44 Dose: Not Given Hydroxyzine HCl (Hydroxyzine Hcl 50 Mg Tablet) 50 mg PO Q4H PRN PRN Reason: Anxiety Last Admin: 01/11/23 12:48 Dose: 50 mg [place] Carbonate ([place] Carbonate Er 450 Mg Tablet.Er) 900 mg PO BEDTIME [facility] Last Admin: 01/10/23 19:21 Dose: 900 mg Lorazepam (Lorazepam 0.5 Mg Tablet) 0.5 mg PO Q4H PRN PRN Reason: anxiety, agitation Last Admin: 01/11/23 14:31 Dose: 0.5 mg Magn[place] Hydroxide (Milk Of Magnesia 30 Ml Oral.Susp) 30 ml PO DAILY PRN PRN Reason: Constipation Multivitamins/Vitamin C (Multivitamin Tablet) 1 tab PO DAILY [facility] Last Admin: 01/11/23 08:44 Dose: Not Given Nicotine Polacrilex (Nicotine Polacrilex Lozenge 4 Mg Lozenge) 4 mg BUCCAL Q2H PRN PRN Reason: Nicotine Cravings Last Admin: 01/11/23 14:32 Dose: 4 mg Nicotine Polacrilex (Nicotine Polacrilex 2 Mg Gum) 2 mg BUCCAL Q2H PRN PRN Reason: Nicotine Cravings Last Admin: 01/09/23 02:23 Dose: 2 mg Olanzapine (Olanzapine 10 Mg Tablet) 10 mg PO BID PRN PRN Reason: david, psychosis Last Admin: 01/11/23 10:02 Dose: 10 mg Olanzapine (Olanzapine 10 Mg Vial) 10 mg IM BID PRN PRN Reason: if ref PO Vraylar/lithium Olanzapine (Olanzapine Odt 10 Mg Tab.Rapdis) 10 mg TRANSLINGU BID [facility] Last Admin: 01/11/23 08:17 Dose: 10 mg Thiamine HCl (Thiamine Hcl 100 Mg Tablet) 100 mg PO DAILY [facility] Last Admin: 01/11/23 08:44 Dose: Not Given Trazodone HCl (Trazodone Hcl 50 Mg Tablet) 50 mg PO BEDTIME MRX1 PRN PRN Reason: Insomnia Last Admin: 01/06/23 20:20 Dose: 50 mg Allergies Allergies Allergy/AdvReac Type Severity Reaction Status Date / Time No Known Allergies Allergy Verified 12/18/22 20:52 Assessment & Plan Assessment & Plan (1) Bipolar disorder with severe david: Status: Acute Code(s): F31.13 - Bipolar disorder, current episode manic without psychotic features, severe Plan 12/31/22- Observe, monitor, court 01/01. Continues to refuse treatment. 01/01/23- [place] VIII approved by the court. Will initiate treatment when we receive final paperwork. 01/02/23- [place], [place] ordered Pt given information She declines to discuss treatment with medication at this time. 01/03 patient remains manic and disorganized; refusing court ordered meds and received Zyprexa IM; investigative writer discussed case with NATE Magdaleno who agrees to Zyprexa IM b.i.d. for refusal of either Vraylar in the morning or [place] at bedtime; investigative writer changed lithium to bedtime to consolidate dosing and potentially help with sleep. Materials Supervisor informed that test on admission negative 01/04 Patient remains manic, guarded, intrusive and loud; would not talk with investigative writer other than to loudly repeat she demands in emergency hearing and that lawsuits will be filed. However patient did take scheduled medication last night and this morning though she did so while dolling out much verbal abuse; only sleeping a few hours. 01/06/23- continue current plan 01/07/23- continue current plan 01/08/23- labs, continue current plan 01/09 patient remains manic; initially refused blood draw for lithium level however did agree to it and lithium level found to be subtherapeutic; kidney function intact; TSH WNL. Given continued david will increase lithium dose 01/10 patient is a little improved, much less guarded and verbally combative/assaultive; patient's lithium dose recently increased and so it is premature to make med adjustments at this time 01/11 continue current regimen Plan: Patient involuntary committed Court ordered medication; if refuses p.o. P.r.n. Zyprexa 10 mg IM b.i.d. for refusal of either lithium or Vraylar -Continue Vraylar 3 mg daily; if refuses give Zyprexa 10 mg IM -INCREASED TO lithium 900 mg at bedtime; if refuses give Zyprexa 10 mg IM Patient educated on: diagnosis Informed Consent: does not understand Reason for contiued inpatient stay Substantial Risk for: inability to function Time Spent With Patient Time: Total time managing care of this patient today ____ minutes.
[2023-01-11 18:00] VITALS: BP 129/75; PULSE 86; TEMP 36.3; O2SAT 96
[2023-01-11] MEDS: Lithium Carbonate ER 450 MG TABLET.ER 900 MG PO (19:35)
[2023-01-12] MEDS: Nicotine Polacrilex Lozenge 4 MG LOZENGE BUCCAL ×7 (02:19→18:58)
[2023-01-12] MEDS: hydrOXYzine HCL 50 MG TABLET PO ×3 (03:07→13:05)
[2023-01-12] MEDS: Acetaminophen 325 MG TABLET 650 MG PO (03:19)
[2023-01-12] MEDS: LORazepam 0.5 MG TABLET PO ×3 (03:54→16:58)
[2023-01-12 06:00] VITALS: BP 138/77; PULSE 112; RESP 14; TEMP 36.9; O2SAT 99
[2023-01-12] MEDS: OLANZapine 10 MG TABLET PO ×2 (06:31→14:28)
[2023-01-12] MEDS: OLANZapine ODT 10 MG TAB.RAPDIS TRANSLINGU ×2 (08:13→18:58)
--- NOTE | 2023-01-12 17:26 | HO.PSYCHPN ---
Subjective Subjective Date of Service: 01/12/23 Reason For Visit: david Subjective Notes: [place] Order and Section 8 Interim History: Pt quietly resting in bed when approached; acknowledged this mortgage loan underwriter denies complains or concerns about meds; overall cooperative but ot easily engaged in lane discussion. continues to express delusional ideas about police Medication Compliance: Yes Side effects from medications: No Review of Systems constipation Medical Review of Systems: unchanged Review of Systems Review of Systems Constitutional : No Weight loss, No Fever, No Chills, No Night Sweats, No Fatigue, No Malaise ENT/Mouth : No Hearing loss, No Ear Pain, No Nasal Congestion, No Sinus Pain, No Hoarseness, No sore throat, No Rhinorrhea, No Swallowing Difficulty Eyes: No Eye Pain, No Swelling, No Redness, No Foreign Body, No Discharge, No Vision Changes Cardiovascular : No Chest Pain, No SOB, No Dyspnea on Exertion, No Orthopnea, No Edema, No Palpitations Respiratory : No Cough, No Sputum, No Wheezing, No Smoke Exposure, No Dyspnea Gastrointestinal : No Nausea, No Vomiting, No Diarrhea, No Constipation, No abdominal Pain, No Hematochezia, No Melena Genitourinary : no irregular bleeding, No Dysuria, No Urinary Frequency, No Hematuria, No Urinary Incontinence, No Urgency, No Flank Pain, No Urinary Flow Changes, No Hesitancy Musculoskeletal : No joint pain, No Myalgias, No Joint Swelling Skin : No Skin Lesions, No rash Neuro : No Weakness, No Numbness, No Paresthesias, No Loss of Consciousness, No Dizziness, No Headache Psych : No Anxiety/Panic, No Depression, No SI/HI/AH/VH, admits to alcohol abuse Heme/Lymph: No Bruising, No Bleeding,No Lymphadenopathy Endocrine : No Polyuria, No Polydipsia, No Temperature Intolerance Yes all other systems are reviewed and are negative and Unobtainable due to mental status Reports behavioral changes and Reports confusion Psychiatric: Reports abnormal sleep pattern, Reports anxiety, Reports behavioral changes, Reports confusion, Reports difficulty concentrating, Reports irritability, Reports mood swings, Reports paranoia and Reports hallucinations Mental Status Exam Mental Status Exam Narrative: Pt is alert and oriented; behavior is intermittently cooperative vs guarded; can be friendly; manic, pressured speech; patient is not in distress; dressed in casual attire with unkempt hair but adequate hygiene; mood is described as good and affect constricted; eye contact appropriate; Speech hyperverbal and moderately pressured; normal volume and prosody; some psychomotor agitation present; thought process can be goal oriented but is circumstantial and tangential; Thought content is on focused on on fair admission, wrongness of court-ordered medication and some grandiosity; denies any SI/HI. Patients insight and judgment impaired Patient Appearance: Appropriate Patient Orientation: Person, Place, Time and Situation Level of Consciousness: Alert Patient Behavior: Guarded, Belligerent, Verbal Threats and Avoidant Mood Description: Hostile and Angry Affect Description: Hostile Patient Cognition Impaired: No Ability to Follow Directions: Fair Speech Pattern: Spontaneous Speech Memory Description: Episodic Impaired Diagnostics Vital Signs (24Hr): Vital Signs - 24 hr 01/11/23 18:00 01/12/23 06:00 Temperature 97.3 F 98.4 F Pulse Rate 86 112 H Respiratory Rate 14 Blood Pressure 129/75 138/77 Pulse Oximetry 96 99 Oxygen Delivery Method Room Air Room Air BMI result Body Mass Index 28.4 Labs 12/18/22 21:22 01/09/23 11:45 Imaging Radiology Impressions: ITS Impressions Head CT 12/28/22 10:24 IMPRESSION: No acute intracranial process seen. Medications Medications Current Medications Acetaminophen (Acetaminophen 325 Mg Tablet) 650 mg PO Q6H PRN PRN Reason: Headache/Pain Mild Scale (1-3) Last Admin: 01/12/23 03:19 Dose: 650 mg Al Hydroxide/Mg Hydroxide (Magnesium Hydrox/Alum Hydrox 30 Ml Oral.Susp) 30 ml PO Q6H PRN PRN Reason: Heartburn/Nausea Folic Acid (Folic Acid 1 Mg Tablet) 1 mg PO DAILY [facility] Last Admin: 01/12/23 08:35 Dose: Not Given Hydroxyzine HCl (Hydroxyzine Hcl 50 Mg Tablet) 50 mg PO Q4H PRN PRN Reason: Anxiety Last Admin: 01/12/23 13:05 Dose: 50 mg [place] Carbonate ([place] Carbonate Er 450 Mg Tablet.Er) 900 mg PO BEDTIME [facility] Last Admin: 01/11/23 19:35 Dose: 900 mg Lorazepam (Lorazepam 0.5 Mg Tablet) 0.5 mg PO Q4H PRN PRN Reason: anxiety, agitation Last Admin: 01/12/23 12:23 Dose: 0.5 mg Magnesium Hydroxide (Milk Of Magnesia 30 Ml Oral.Susp) 30 ml PO DAILY PRN PRN Reason: Constipation Multivitamins/Vitamin C (Multivitamin Tablet) 1 tab PO DAILY [facility] Last Admin: 01/12/23 08:35 Dose: Not Given Nicotine Polacrilex (Nicotine Polacrilex Lozenge 4 Mg Lozenge) 4 mg BUCCAL Q2H PRN PRN Reason: Nicotine Cravings Last Admin: 01/12/23 13:39 Dose: 4 mg Nicotine Polacrilex (Nicotine Polacrilex 2 Mg Gum) 2 mg BUCCAL Q2H PRN PRN Reason: Nicotine Cravings Last Admin: 01/09/23 02:23 Dose: 2 mg Olanzapine (Olanzapine 10 Mg Tablet) 10 mg PO BID PRN PRN Reason: david, psychosis Last Admin: 01/12/23 14:28 Dose: 10 mg Olanzapine (Olanzapine 10 Mg Vial) 10 mg IM BID PRN PRN Reason: if ref PO Vraylar/lithium Olanzapine (Olanzapine Odt 10 Mg Tab.Rapdis) 10 mg TRANSLINGU BID [facility] Last Admin: 01/12/23 08:13 Dose: 10 mg Thiamine HCl (Thiamine Hcl 100 Mg Tablet) 100 mg PO DAILY [facility] Last Admin: 01/12/23 08:36 Dose: Not Given Trazodone HCl (Trazodone Hcl 50 Mg Tablet) 50 mg PO BEDTIME MRX1 PRN PRN Reason: Insomnia Last Admin: 01/06/23 20:20 Dose: 50 mg Allergies Allergies Allergy/AdvReac Type Severity Reaction Status Date / Time No Known Allergies Allergy Verified 12/18/22 20:52 Assessment & Plan Assessment & Plan (1) Bipolar disorder with severe david: Status: Acute Code(s): F31.13 - Bipolar disorder, current episode manic without psychotic features, severe Plan 12/31/22- Observe, monitor, court 01/01. Continues to refuse treatment. 01/01/23- Section VIII approved by the court. Will initiate treatment when we receive final paperwork. 01/02/23- [place], Vraylar ordered Pt given information She declines to discuss treatment with medication at this time. 01/03 patient remains manic and disorganized; refusing court ordered meds and received Zyprexa IM; mortgage loan underwriter discussed case with NATE Magdaleno who agrees to Zyprexa IM b.i.d. for refusal of either Vraylar in the morning or [place] at bedtime; mortgage loan underwriter changed lithium to bedtime to consolidate dosing and potentially help with sleep. Presto Log Operator informed that test on admission negative 01/04 Patient remains manic, guarded, intrusive and loud; would not talk with mortgage loan underwriter other than to loudly repeat she demands in emergency hearing and that lawsuits will be filed. However patient did take scheduled medication last night and this morning though she did so while dolling out much verbal abuse; only sleeping a few hours. 01/06/23- continue current plan 01/07/23- continue current plan 01/08/23- labs, continue current plan 01/09 patient remains manic; initially refused blood draw for lithium level however did agree to it and lithium level found to be subtherapeutic; kidney function intact; TSH WNL. Given continued david will increase lithium dose 01/10 patient is a little improved, much less guarded and verbally combative/assaultive; patient's lithium dose recently increased and so it is premature to make med adjustments at this time 01/11 continue current regimen 01/12 continue current treatment plan Plan: Patient involuntary committed Court ordered medication; if refuses p.o. P.r.n. Zyprexa 10 mg IM b.i.d. for refusal of either lithium or Vraylar -Continue Vraylar 3 mg daily; if refuses give Zyprexa 10 mg IM -INCREASED TO lithium 900 mg at bedtime; if refuses give Zyprexa 10 mg IM Reason for contiued inpatient stay Substantial Risk for: harm to self, harm to others, inability to function and rapid decompensation Time Spent With Patient Time: Total time managing care of this patient today ____ minutes.
[2023-01-12] MEDS: Lithium Carbonate ER 450 MG TABLET.ER 900 MG PO (18:58)
[2023-01-13] MEDS: Nicotine Polacrilex Lozenge 4 MG LOZENGE BUCCAL ×8 (04:46→23:07)
[2023-01-13] MEDS: hydrOXYzine HCL 50 MG TABLET PO ×2 (05:57→14:48)
[2023-01-13 06:00] VITALS: BP 123/77; PULSE 91; RESP 14; TEMP 36.7; O2SAT 96
[2023-01-13] MEDS: LORazepam 0.5 MG TABLET PO ×2 (06:46→10:52)
[2023-01-13] MEDS: OLANZapine ODT 10 MG TAB.RAPDIS TRANSLINGU ×2 (08:33→19:28)
[2023-01-13] MEDS: LORazepam 1 MG TABLET PO (12:39)
[2023-01-13] MEDS: OLANZapine 10 MG TABLET PO (12:39)
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
[2023-01-13 18:00] VITALS: BP 124/81; PULSE 104; RESP 16; TEMP 36.2
[2023-01-13] MEDS: Lithium Carbonate ER 450 MG TABLET.ER 900 MG PO (19:28)
[2023-01-14] MEDS: Nicotine Polacrilex Lozenge 4 MG LOZENGE BUCCAL ×6 (04:04→19:24)
[2023-01-14] MEDS: LORazepam 1 MG TABLET PO ×2 (05:37→13:58)
[2023-01-14 08:26] VITALS: BP 110/56; PULSE 100; RESP 16; TEMP 35.8; O2SAT 100
[2023-01-14] MEDS: OLANZapine ODT 10 MG TAB.RAPDIS TRANSLINGU ×2 (08:57→19:24)
[2023-01-14] MEDS: Folic Acid 1 MG TABLET PO (08:57)
[2023-01-14] MEDS: Multivitamin TABLET 1 TAB PO (08:57)
[2023-01-14] MEDS: Thiamine HCL 100 MG TABLET PO (08:57)
[2023-01-14 09:09] LABS: Lithium 0.53 mmol/L (0.60-1.20)
[2023-01-14 09:14] LABS: Blood Urea Nitrogen 10 mg/dL (9-16); Estimated Glomerular Filt Rate > 60
[2023-01-14] MEDS: OLANZapine 10 MG TABLET PO ×2 (09:32→14:59)
[2023-01-14] MEDS: hydrOXYzine HCL 50 MG TABLET PO ×2 (11:09→16:42)
[2023-01-14 18:00] VITALS: BP 151/72; PULSE 97; TEMP 36; O2SAT 97
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
[2023-01-14] MEDS: Lithium Carbonate ER 450 MG TABLET.ER 900 MG PO (19:24)
[2023-01-15] MEDS: Nicotine Polacrilex Lozenge 4 MG LOZENGE BUCCAL ×6 (00:28→17:59)
[2023-01-15] MEDS: hydrOXYzine HCL 50 MG TABLET PO ×4 (00:31→15:33)
[2023-01-15] MEDS: traZODone HCL 50 MG TABLET PO ×2 (01:14→19:33)
[2023-01-15] MEDS: LORazepam 1 MG TABLET PO ×3 (06:48→18:02)
[2023-01-15] MEDS: Folic Acid 1 MG TABLET PO (08:21)
[2023-01-15] MEDS: Thiamine HCL 100 MG TABLET PO (08:21)
[2023-01-15] MEDS: Multivitamin TABLET 1 TAB PO (08:21)
[2023-01-15] MEDS: Lithium Carbonate ER 450 MG TABLET.ER PO (08:22)
[2023-01-15] MEDS: OLANZapine ODT 10 MG TAB.RAPDIS TRANSLINGU (08:22)
[2023-01-15 08:34] VITALS: BP 125/71; PULSE 107; RESP 16; TEMP 36.6; O2SAT 96
--- NOTE | 2023-01-15 15:41 | HO.PSYCHPN ---
Subjective Subjective Date of Service: 01/15/23 Reason For Visit: david Subjective Notes: Section 8 Healthcare Proxy: No Guardianship: No Medical Problems Affecting Mental Status: No Interim History: Visable in milieu, engaged with peers and team, no lability. Brief interactions today, preparing for couples meeting 01/16/23 2:30pm with severiano. She will ask Dad to join by phone to obtain his input (she reports he has bipolar disorder) and to begin discharge planning work. Appropriate responses to a very active milieu with appropriate concerns raised, reflections on her own actions when acute sx were present and reflections on need for treatment vs creative energies being expressed. Fearful of a peer, which she comments that she had felt like this-sorting through her experience. Medication Compliance: Yes Side effects from medications: No Attending Groups: Yes Review of Systems Acute medical concerns: No Medical Review of Systems: unchanged Mental Status Exam Mental Status Exam Patient Appearance: Appropriate Patient Orientation: Person, Place, Time and Situation Level of Consciousness: Alert Patient Behavior: Talkative, Cooperative and Good Eye Contact Mood Description: Appropriate and Apprehensive Affect Description: Appropriate and Apprehensive Patient Cognition Impaired: No Ability to Follow Directions: Good Speech Pattern: Spontaneous Speech Memory Description: Episodic Impaired Hallucinations: None Thought Process: Racing Thought Content: positive for Racing and positive for Circumstantial Depressive Symptoms: Increased Anxiety Judgement: Fair Diagnostics Vital Signs (24Hr): Vital Signs - 24 hr 01/14/23 18:00 01/15/23 08:34 Temperature 96.8 F 98 F Pulse Rate 97 107 H Respiratory Rate 16 Blood Pressure 151/72 H 125/71 Pulse Oximetry 97 96 Oxygen Delivery Method Room Air Room Air BMI result Body Mass Index 28.4 Labs 12/18/22 21:22 01/14/23 08:15 Labs: Laboratory Results - last 48 hr 01/14/23 01/14/23 08:15 08:15 BUN 10 Creatinine 0.92 Estim Creat Clear Calc 91.0 Estimated GFR > 60 Vanderwagen 0.53 L Imaging Radiology Impressions: ITS Impressions Head CT 12/28/22 10:24 IMPRESSION: No acute intracranial process seen. Medications Medications Current Medications Acetaminophen (Acetaminophen 325 Mg Tablet) 650 mg PO Q6H PRN PRN Reason: Headache/Pain Mild Scale (1-3) Last Admin: 01/12/23 03:19 Dose: 650 mg Al Hydroxide/Mg Hydroxide (Magnesium Hydrox/Alum Hydrox 30 Ml Oral.Susp) 30 ml PO Q6H PRN PRN Reason: Heartburn/Nausea Folic Acid (Folic Acid 1 Mg Tablet) 1 mg PO DAILY [facility] Last Admin: 01/15/23 08:21 Dose: 1 mg Hydroxyzine HCl (Hydroxyzine Hcl 50 Mg Tablet) 50 mg PO Q4H PRN PRN Reason: Anxiety Last Admin: 01/15/23 15:33 Dose: 50 mg Vanderwagen Carbonate (V[place] Carbonate Er 450 Mg Tablet.Er) 900 mg PO BEDTIME [facility] Last Admin: 01/14/23 19:24 Dose: 900 mg [place] Carbonate ([place] Carbonate Er 450 Mg Tablet.Er) 450 mg PO DAILY [facility] Last Admin: 01/15/23 08:22 Dose: 450 mg Lorazepam (Lorazepam 1 Mg Tablet) 1 mg PO TID PRN PRN Reason: Anxiety Last Admin: 01/15/23 13:44 Dose: 1 mg Magnesium Hydroxide (Milk Of Magnesia 30 Ml Oral.Susp) 30 ml PO DAILY PRN PRN Reason: Constipation Multivitamins/Vitamin C (Multivitamin Tablet) 1 tab PO DAILY [facility] Last Admin: 01/15/23 08:21 Dose: 1 tab Nicotine Polacrilex (Nicotine Polacrilex Lozenge 4 Mg Lozenge) 4 mg BUCCAL Q2H PRN PRN Reason: Nicotine Cravings Last Admin: 01/15/23 13:44 Dose: 4 mg Olanzapine (Olanzapine 10 Mg Tablet) 10 mg PO BID PRN PRN Reason: david, psychosis Last Admin: 01/14/23 14:59 Dose: 10 mg Olanzapine (Olanzapine 10 Mg Vial) 10 mg IM BID PRN PRN Reason: if ref PO Vraylar/lithium Olanzapine (Olanzapine Odt 10 Mg Tab.Rapdis) 10 mg TRANSLINGU BID [facility] Last Admin: 01/15/23 08:22 Dose: 10 mg Thiamine HCl (Thiamine Hcl 100 Mg Tablet) 100 mg PO DAILY [facility] Last Admin: 01/15/23 08:21 Dose: 100 mg Trazodone HCl (Trazodone Hcl 50 Mg Tablet) 50 mg PO BEDTIME MRX1 PRN PRN Reason: Insomnia Last Admin: 01/15/23 01:14 Dose: 50 mg Allergies Allergies Allergy/AdvReac Type Severity Reaction Status Date / Time No Known Allergies Allergy Verified 12/18/22 20:52 Assessment & Plan Assessment & Plan (1) Bipolar disorder with severe david: Status: Acute Code(s): F31.13 - Bipolar disorder, current episode manic without psychotic features, severe Plan 12/31/22- Observe, monitor, court 01/01. Continues to refuse treatment. 01/01/23- Section VIII approved by the court. Will initiate treatment when we receive final paperwork. 01/02/23- Vanderwagen, Vraylar ordered Pt given information She declines to discuss treatment with medication at this time. 01/03 patient remains manic and disorganized; refusing court ordered meds and received Zyprexa IM; law writer discussed case with NATE Magdaleno who agrees to Zyprexa IM b.i.d. for refusal of either Vraylar in the morning or Vanderwagen at bedtime; law writer changed lithium to bedtime to consolidate dosing and potentially help with sleep. Managed Care Specialist informed that test on admission negative 01/04 Patient remains manic, guarded, intrusive and loud; would not talk with law writer other than to loudly repeat she demands in emergency hearing and that lawsuits will be filed. However patient did take scheduled medication last night and this morning though she did so while dolling out much verbal abuse; only sleeping a few hours. 01/06/23- continue current plan 01/07/23- continue current plan 01/08/23- labs, continue current plan 01/09 patient remains manic; initially refused blood draw for lithium level however did agree to it and lithium level found to be subtherapeutic; kidney function intact; TSH WNL. Given continued david will increase lithium dose 01/10 patient is a little improved, much less guarded and verbally combative/assaultive; patient's lithium dose recently increased and so it is premature to make med adjustments at this time 01/11 continue current regimen 01/12 continue current treatment plan 01/13 ativan prn increased fro anxiety and consider reducing in 24-48 hours 01/14/23- Increase Vanderwagen ER to 450 mg a.m. 900 mg h.s. 01/15/23- Couples meeting with severiano 01/16/23 2:30pm. Father may join. Continue current regime Discharge planning. Plan: Patient involuntary committed Court ordered medication; if refuses p.o. P.r.n. Zyprexa 10 mg IM b.i.d. for refusal of either lithium or Vraylar -Continue Vraylar 3 mg daily; if refuses give Zyprexa 10 mg IM -INCREASED TO lithium 900 mg at bedtime; if refuses give Zyprexa 10 mg IM Patient educated on: medication risk/benefits and therapeutic strategies Informed Consent: further education needed Reason for contiued inpatient stay Substantial Risk for: rapid decompensation Time Spent With Patient Time: Total time managing care of this patient today ____ minutes.
[2023-01-15] MEDS: OLANZapine 10 MG TABLET PO (16:00)
[2023-01-15 18:00] VITALS: BP 119/75; PULSE 95; TEMP 36.5; O2SAT 97
[2023-01-15] MEDS: Lithium Carbonate ER 450 MG TABLET.ER 900 MG PO (19:33)
[2023-01-16] MEDS: Nicotine Polacrilex Lozenge 4 MG LOZENGE BUCCAL ×8 (02:36→20:05)
[2023-01-16] MEDS: hydrOXYzine HCL 50 MG TABLET PO ×4 (03:32→20:04)
[2023-01-16] MEDS: LORazepam 1 MG TABLET PO ×3 (03:34→20:05)
[2023-01-16 08:07] VITALS: BP 115/54; PULSE 64; RESP 16; TEMP 36.5; O2SAT 97
[2023-01-16] MEDS: Thiamine HCL 100 MG TABLET PO (08:08)
[2023-01-16] MEDS: Lithium Carbonate ER 450 MG TABLET.ER PO (08:08)
[2023-01-16] MEDS: Folic Acid 1 MG TABLET PO (08:08)
[2023-01-16] MEDS: OLANZapine ODT 10 MG TAB.RAPDIS TRANSLINGU ×2 (08:08→20:05)
[2023-01-16] MEDS: Multivitamin TABLET 1 TAB PO (08:08)
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
[2023-01-16] MEDS: Nicotine 7 MG PATCH.TD24 TRANSDERMA (14:02)
[2023-01-16] MEDS: OLANZapine 10 MG TABLET PO (14:55)
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
[2023-01-16 16:51] VITALS: BP 129/73; PULSE 92; RESP 20; TEMP 37.1; O2SAT 98
[2023-01-16] MEDS: traZODone HCL 50 MG TABLET PO (20:04)
[2023-01-16] MEDS: Lithium Carbonate ER 450 MG TABLET.ER 900 MG PO (20:05)
[2023-01-17] MEDS: Nicotine Polacrilex Lozenge 4 MG LOZENGE BUCCAL ×7 (03:33→23:59)
[2023-01-17] MEDS: hydrOXYzine HCL 50 MG TABLET PO ×3 (03:35→18:54)
[2023-01-17 07:00] VITALS: BMI 28.5
[2023-01-17] MEDS: Nicotine 7 MG PATCH.TD24 TRANSDERMA (08:03)
[2023-01-17] MEDS: Multivitamin TABLET 1 TAB PO (08:03)
[2023-01-17] MEDS: Lithium Carbonate ER 450 MG TABLET.ER PO (08:03)
[2023-01-17] MEDS: Folic Acid 1 MG TABLET PO (08:03)
[2023-01-17] MEDS: OLANZapine ODT 10 MG TAB.RAPDIS TRANSLINGU ×2 (08:03→23:54)
[2023-01-17] MEDS: Thiamine HCL 100 MG TABLET PO (08:03)
[2023-01-17 08:33] VITALS: BP 100/63; PULSE 107; RESP 18; TEMP 36.6; O2SAT 98
[2023-01-17] MEDS: LORazepam 1 MG TABLET PO ×2 (10:50→16:23)
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
[2023-01-17] MEDS: OLANZapine 10 MG TABLET PO (17:30)
[2023-01-17] MEDS: Lithium Carbonate ER 450 MG TABLET.ER 900 MG PO (23:54)
[2023-01-18] MEDS: Nicotine Polacrilex Lozenge 4 MG LOZENGE BUCCAL ×5 (05:46→17:28)
[2023-01-18] MEDS: OLANZapine 10 MG TABLET PO ×2 (07:39→11:41)
[2023-01-18] MEDS: hydrOXYzine HCL 50 MG TABLET PO ×3 (07:39→20:26)
[2023-01-18 08:00] VITALS: BP 114/64; PULSE 94; TEMP 36.6; O2SAT 96
[2023-01-18] MEDS: Nicotine 7 MG PATCH.TD24 TRANSDERMA (08:44)
[2023-01-18] MEDS: Lithium Carbonate ER 450 MG TABLET.ER PO (08:45)
[2023-01-18] MEDS: OLANZapine ODT 10 MG TAB.RAPDIS TRANSLINGU ×2 (08:46→20:32)
[2023-01-18] MEDS: Multivitamin TABLET 1 TAB PO (08:46)
[2023-01-18] MEDS: Folic Acid 1 MG TABLET PO (08:46)
[2023-01-18] MEDS: Thiamine HCL 100 MG TABLET PO (08:46)
[2023-01-18] MEDS: LORazepam 1 MG TABLET PO ×2 (08:50→16:26)
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
[2023-01-18 20:03] VITALS: BP 129/62; PULSE 94; RESP 18; TEMP 36.6; O2SAT 95
[2023-01-18] MEDS: Lithium Carbonate ER 450 MG TABLET.ER 900 MG PO (20:26)
[2023-01-19] MEDS: Nicotine Polacrilex Lozenge 4 MG LOZENGE BUCCAL ×6 (05:02→21:09)
[2023-01-19] MEDS: LORazepam 1 MG TABLET PO ×2 (07:13→14:32)
[2023-01-19 08:20] VITALS: BP 110/67; PULSE 110; RESP 18; TEMP 36.6; O2SAT 96
[2023-01-19] MEDS: Multivitamin TABLET 1 TAB PO (08:43)
[2023-01-19] MEDS: Thiamine HCL 100 MG TABLET PO (08:43)
[2023-01-19] MEDS: Folic Acid 1 MG TABLET PO (08:43)
[2023-01-19] MEDS: Lithium Carbonate ER 450 MG TABLET.ER PO (08:44)
[2023-01-19] MEDS: OLANZapine ODT 10 MG TAB.RAPDIS TRANSLINGU ×2 (08:44→21:10)
[2023-01-19] MEDS: Nicotine 14 MG PATCH.TD24 TRANSDERMA (08:45)
[2023-01-19] MEDS: OLANZapine 10 MG TABLET PO (13:52)
[2023-01-19] MEDS: hydrOXYzine HCL 50 MG TABLET PO (14:32)
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
[2023-01-19 20:19] VITALS: BP 114/61; PULSE 107; RESP 18; TEMP 36.6; O2SAT 95
[2023-01-19] MEDS: Lithium Carbonate ER 450 MG TABLET.ER 900 MG PO (21:10)
[2023-01-20] MEDS: hydrOXYzine HCL 50 MG TABLET PO ×3 (05:48→14:24)
[2023-01-20] MEDS: Nicotine Polacrilex Lozenge 4 MG LOZENGE BUCCAL ×6 (05:48→21:56)
[2023-01-20 07:00] LABS: Lithium 0.86 mmol/L (0.60-1.20)
[2023-01-20 07:01] LABS: Lithium 0.85 mmol/L (0.60-1.20)
[2023-01-20 07:12] LABS: Anion Gap 12 (12-20); Blood Urea Nitrogen 12 mg/dL (9-16); Calcium 9.5 mg/dL (8.4-10.2); Carbon Dioxide 23 mmol/L (22-29); Chloride 106 mmol/L (96-108); Creatinine Clr Calc Pharmacy 89.2; Estimated Glomerular Filt Rate > 60; Glucose Random 132 mg/dL (60-115); Potassium 4.1 mmol/L (3.3-5.1); Sodium 137 mmol/L (135-145)
[2023-01-20 07:29] LABS: Thyroid Stimulating Hormone 6.52 uIU/mL (0.32-4.0)
[2023-01-20 08:15] VITALS: BP 100/60; PULSE 83; RESP 18; TEMP 36.6; O2SAT 98
[2023-01-20] MEDS: Nicotine 14 MG PATCH.TD24 TRANSDERMA (09:05)
[2023-01-20] MEDS: Lithium Carbonate ER 450 MG TABLET.ER PO (09:05)
[2023-01-20] MEDS: OLANZapine ODT 10 MG TAB.RAPDIS TRANSLINGU ×2 (09:05→21:46)
[2023-01-20] MEDS: Multivitamin TABLET 1 TAB PO (09:05)
[2023-01-20] MEDS: Folic Acid 1 MG TABLET PO (09:05)
[2023-01-20] MEDS: Thiamine HCL 100 MG TABLET PO (09:05)
[2023-01-20] MEDS: LORazepam 1 MG TABLET PO ×2 (09:10→14:22)
[2023-01-20] MEDS: OLANZapine 10 MG TABLET PO (11:23)
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
[2023-01-20 18:00] VITALS: BP 110/65; PULSE 83; RESP 18; TEMP 36.3; O2SAT 98
[2023-01-20] MEDS: Lithium Carbonate ER 450 MG TABLET.ER 900 MG PO (21:46)
[2023-01-20] MEDS: traZODone HCL 50 MG TABLET PO (21:56)
[2023-01-21] MEDS: hydrOXYzine HCL 50 MG TABLET PO ×3 (04:59→16:34)
[2023-01-21] MEDS: Nicotine Polacrilex Lozenge 4 MG LOZENGE BUCCAL ×6 (04:59→18:25)
[2023-01-21 08:30] VITALS: BP 119/72; PULSE 101; RESP 16; TEMP 36.6; O2SAT 98
[2023-01-21] MEDS: Lithium Carbonate ER 450 MG TABLET.ER PO (08:44)
[2023-01-21] MEDS: OLANZapine ODT 10 MG TAB.RAPDIS TRANSLINGU ×2 (08:44→20:17)
[2023-01-21] MEDS: Multivitamin TABLET 1 TAB PO (08:44)
[2023-01-21] MEDS: Thiamine HCL 100 MG TABLET PO (08:44)
[2023-01-21] MEDS: Folic Acid 1 MG TABLET PO (08:44)
[2023-01-21] MEDS: Nicotine 14 MG PATCH.TD24 TRANSDERMA (08:44)
[2023-01-21] MEDS: OLANZapine 10 MG TABLET PO (13:28)
[2023-01-21] MEDS: LORazepam 1 MG TABLET PO ×2 (14:43→18:24)
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
[2023-01-21] MEDS: traZODone HCL 50 MG TABLET PO (20:17)
[2023-01-21] MEDS: Lithium Carbonate ER 450 MG TABLET.ER 900 MG PO (20:17)
[2023-01-22] MEDS: hydrOXYzine HCL 50 MG TABLET PO ×3 (07:06→15:43)
[2023-01-22] MEDS: Nicotine Polacrilex Lozenge 4 MG LOZENGE BUCCAL ×6 (07:06→20:17)
[2023-01-22] MEDS: Thiamine HCL 100 MG TABLET PO (08:48)
[2023-01-22] MEDS: Multivitamin TABLET 1 TAB PO (08:48)
[2023-01-22] MEDS: Folic Acid 1 MG TABLET PO (08:48)
[2023-01-22] MEDS: Nicotine 14 MG PATCH.TD24 TRANSDERMA (08:48)
[2023-01-22] MEDS: OLANZapine ODT 10 MG TAB.RAPDIS TRANSLINGU ×2 (08:48→20:16)
[2023-01-22 09:16] VITALS: BP 115/61; PULSE 94; RESP 18; TEMP 36.4; O2SAT 98
[2023-01-22] MEDS: LORazepam 1 MG TABLET PO ×2 (09:32→17:36)
[2023-01-22] MEDS: Lithium Carbonate ER 450 MG TABLET.ER PO (10:51)
[2023-01-22] MEDS: OLANZapine 10 MG TABLET PO (13:33)
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
[2023-01-22 18:31] VITALS: BP 121/66; PULSE 93; RESP 16; TEMP 36.7; O2SAT 98
[2023-01-22] MEDS: traZODone HCL 50 MG TABLET PO (20:16)
[2023-01-22] MEDS: Lithium Carbonate ER 450 MG TABLET.ER 900 MG PO (20:16)
[2023-01-23] MEDS: Nicotine Polacrilex Lozenge 4 MG LOZENGE BUCCAL ×5 (06:09→14:36)
[2023-01-23] MEDS: LORazepam 1 MG TABLET PO ×3 (06:09→17:04)
[2023-01-23] MEDS: Thiamine HCL 100 MG TABLET PO (08:43)
[2023-01-23] MEDS: Lithium Carbonate ER 450 MG TABLET.ER PO (08:43)
[2023-01-23] MEDS: Multivitamin TABLET 1 TAB PO (08:44)
[2023-01-23] MEDS: Folic Acid 1 MG TABLET PO (08:44)
[2023-01-23] MEDS: Nicotine 14 MG PATCH.TD24 TRANSDERMA (08:44)
[2023-01-23] MEDS: OLANZapine ODT 10 MG TAB.RAPDIS TRANSLINGU ×2 (08:44→20:31)
[2023-01-23 09:13] VITALS: BP 95/68; PULSE 102; RESP 18; TEMP 36.6; O2SAT 98
[2023-01-23] MEDS: hydrOXYzine HCL 50 MG TABLET PO ×2 (10:48→15:01)
[2023-01-23] MEDS: OLANZapine 10 MG TABLET PO (12:14)
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
[2023-01-23 20:30] VITALS: BP 100/55; PULSE 94; RESP 16; TEMP 36.2; O2SAT 97
[2023-01-23] MEDS: traZODone HCL 50 MG TABLET PO (20:31)
[2023-01-23] MEDS: Lithium Carbonate ER 450 MG TABLET.ER 900 MG PO (20:31)
[2023-01-24] MEDS: hydrOXYzine HCL 50 MG TABLET PO ×2 (06:04→10:13)
[2023-01-24] MEDS: Levothyroxine Sodium 25 MCG TABLET PO (06:04)
[2023-01-24] MEDS: Nicotine Polacrilex Lozenge 4 MG LOZENGE BUCCAL ×3 (06:04→10:47)
[2023-01-24 08:00] VITALS: BP 116/63; PULSE 88; RESP 18; TEMP 36.6; O2SAT 97
[2023-01-24] MEDS: Nicotine 14 MG PATCH.TD24 TRANSDERMA (09:04)
[2023-01-24] MEDS: Folic Acid 1 MG TABLET PO (09:04)
[2023-01-24] MEDS: OLANZapine ODT 10 MG TAB.RAPDIS TRANSLINGU (09:04)
[2023-01-24] MEDS: Lithium Carbonate ER 450 MG TABLET.ER PO (09:05)
[2023-01-24] MEDS: Multivitamin TABLET 1 TAB PO (09:05)
[2023-01-24] MEDS: Thiamine HCL 100 MG TABLET PO (09:06)
--- NOTE | 2023-01-24 16:35 | P.DS_ITS ---
DS: Providers Provider Date of Service: 01/24/23 Date of admission: 12/19/22 15:01 Date of discharge: 01/24/23 Primary care physician: Brielle Rodriguez DO Admitting clinician: Valencia Wheatley Attending physician on admission: Thai Somers Attending physician on discharge: Thai Somers Discharging clinician: Valencia Wheatley DS: Diagnosis Discharge Diagnosis (1) Bipolar disorder with severe david: Status: Acute DS: Medications Discharge Medications Home Medications: Previous Rx's Medication Instructions Recorded folic acid 1 mg tablet 1 mg PO DAILY #30 tabs 01/23/23 levothyroxine 25 mcg tablet 25 mcg PO DAILY@0600 #30 tabs 01/23/23 lithium carbonate 450 mg 450 mg PO DAILY #30 tabs 01/23/23 tablet,extended release lithium carbonate 450 mg 900 mg PO BEDTIME #60 tabs 01/23/23 tablet,extended release lorazepam 1 mg tablet 1 mg PO DAILY PRN Anxiety #5 tabs 01/23/23 multivitamin (Daily-Valerie tablet) 1 tab PO DAILY #30 tabs 01/23/23 nicotine (polacrilex) 4 mg buccal 4 mg buccal Q2H PRN Nicotine 01/23/23 lozenge Cravings #108 ea nicotine 14 mg/24 hr daily 1 patch transdermal DAILY #28 ea 01/23/23 transdermal patch (Nicoderm CQ) olanzapine 10 mg disintegrating 10 mg translingual BID #60 tabs 01/23/23 tablet thiamine mononitrate (vit B1) 100 100 mg PO DAILY #30 tabs 01/23/23 mg tablet Mental Status Exam Mental Status Exam Patient Appearance: Appropriate Patient Orientation: Person, Place, Time and Situation Level of Consciousness: Alert Patient Behavior: Talkative and Good Eye Contact Mood Description: Calm and Appropriate Affect Description: Appropriate Patient Cognition Impaired: No Ability to Follow Directions: Good Speech Pattern: Spontaneous Speech Memory Description: Intact Hallucinations: None Delusions: Not Present Thought Process: Intact and Goal Oriented Thought Content: positive for Intact and positive for Goal Oriented Depressive Symptoms: Increased Anxiety and Increased Irritability (some irritability still present per team) Abnormal Motor Activity Signs and Symptoms: Restlessness Judgement: Good Data Data Completed and Pending Completed studies during hospitalization [Text1]: 01/20/23 01/20/23 01/20/23 06:23 06:23 06:23 Sodium 137 Potassium 4.1 Chloride 106 Carbon Dioxide 23 Anion Gap 12 BUN 12 Creatinine 0.94 Estim Creat Clear Calc 89.2 Estimated GFR > 60 Random Glucose 132 H Calcium 9.5 TSH 6.52 H [place] 0.86 0.85 01/22/23 09:13 Sodium Potassium Chloride Carbon Dioxide Anion Gap BUN Creatinine Estim Creat Clear Calc Estimated GFR Random Glucose Calcium TSH [place] 0.80 Imaging Diagnostic Imaging Impressions Head CT 12/28/22 10:24 IMPRESSION: No acute intracranial process seen. DS: Summary Hospital Course Hospital Course: Admission to adult psychiatry for exacerbation of alcohol use disorder, david and psychosis. History of bipolar disorder type 1 with several years of stability. Erica was essentially uncooperative until Section 7/8 was filed and was approved by the court. [place] and Olanzapine were initiated and effective. Multivitamin, Thiamine, and Folic Acid were initiated as well. Lorazepam and Hydroxyzine were used as needed, and Levothyroxine was give at discharge for elevated TSH. Erica is unsure what follow up she will accept, however appointments were made with two agencies of her choice and her primary care team for follow up. [facility] paperwork was completed for her employer as well. Time spent discussing smoking cessation with patient: 3 to 10 minutes Status at Discharge Functional status at discharge: independent ambulation Overall status at discharge: patient is progressing back to baseline Time Spent with Patient Time attestation: Total time managing care of this patient today ____ minutes. Time spent: Greater than 30 minutes Discharge Plan Discharge Anticipated Discharge Date/Time: 01/24/23 12:00 Patient Disposition: Home, Self-Care Discharge Diagnosis: Bipolar Disorder, Type I, David Alcohol Use Disorder Referrals: [facility]: Lisa Gonzalez [Other] - 01/25/23 11:00 am (Initial Intake Appointment for Diagnostic Evaluation (therapy) Appointment in Person at [facility] Patient must attend to receive medication management services ) [facility]: Elvia Salas [Other] - 02/19/23 9:00 am (Initial Psychiatric Evaluation for medication management Appointment is by tele-health check your email for a link to the appointment.) [facility]: Elvia Salas [Other] - 03/21/23 11:00 am (Medication Management appointment with psychiatric medication provider Appointment is by tele-health. Check your email for a link to the appointment.) [facility]: Elizabeth Han [Other] - 02/07/23 (Initial Diagnostic Evaluation for Therapy Appointment in Person at [facility]) [facility]: Dr. Kaplan [Other] - 02/06/23 1:30 pm (Initial Psychiatric Evaluation By a Psychiatric Provider after Discharge from [facility] Appointment in person at [facility] in [place], [place]) Brielle Rodriguez DO [Primary Care Provider] - 01/30/23 12:00 pm (Appointment made with Dr. Lucretia Davis) Discharge Medications: New nicotine [Nicoderm CQ] 14 mg/24 hr patch 24 hour 1 patch transdermal DAILY Qty: 28 0RF nicotine (polacrilex) 4 mg Lozenge 4 mg buccal Q2H PRN (Reason: Nicotine Cravings) Qty: 108 0RF multivitamin [Daily-Valerie] Tablet 1 tab PO DAILY Qty: 30 0RF lithium carbonate 450 mg Tablet Extended Release 900 mg PO BEDTIME Qty: 60 0RF lithium carbonate 450 mg Tablet Extended Release 450 mg PO DAILY Qty: 30 0RF levothyroxine 25 mcg Tablet 25 mcg PO DAILY@0600 Qty: 30 0RF olanzapine 10 mg Tablet,Disintegrating 10 mg translingual BID Qty: 60 0RF folic acid 1 mg Tablet 1 mg PO DAILY Qty: 30 0RF lorazepam 1 mg Tablet 1 mg PO DAILY PRN (Reason: Anxiety) Qty: 5 1RF thiamine mononitrate (vit B1) 100 mg Tablet 100 mg PO DAILY Qty: 30 0RF Discharge Orders: Discharge Order (Routine); Ordered 01/23/23 Ordered By: Valencia Wheatley Diet: Advance to usual diet Activity on Discharge: As tolerated Stand Alone Forms: Patient Portal Discharge page, Community Support Care Plan Goals: Mood and Behavioral Stabilization Sobriety Health Concerns: Mood and Behavioral Stabilization Sobriety Plan of Treatment: Follow up with scheduled out patient provider appointments Take medications as directed Call/Return as needed Assessment: non suicidal, non homicidal, non manic, non psychotic Discharge Date/Time: 01/24/23 11:11
== END 2023-01-24 11:11 | disposition home or self-care (01) | DRG 753 ==
LOC: HO.ED 12-19 01:49 → HO.PM5 12-19 15:09 → HO.PADLT16 01-17 10:55
PROVIDERS: Advanced Practice Midwife; Psychiatry & Neurology Psychiatry; Admitting Provider Clinical Nurse Specialist Psychiatric/Mental Health, Adult; Emergency Provider Emergency Medicine; PCP Family Medicine; Visit Provider Clinical Nurse Specialist Psychiatric/Mental Health, Adult
DX: F31.13 Bipolar disorder, current episode manic without psychotic features, severe (principal); R45.851 Suicidal ideations; F10.229 Alcohol dependence with intoxication, unspecified; Y90.6 Blood alcohol level of 120-199 mg/100 ml; F17.210 Nicotine dependence, cigarettes, uncomplicated; Z20.822 Contact with and (suspected) exposure to COVID-19; Z71.6 Tobacco abuse counseling; Z79.890 Hormone replacement therapy; Z79.899 Other long term (current) drug therapy
CPT/HCPCS: 0353U; 36415; 70450; 80048; 80053; 80143; 80178; 80179; 80307; 81003; 81025; 82077; 82565; 84443; 84520; 84702; 85025; 87480; 87510; 87635; 87660; 92950; 93005; 99285; J0515; J1200; J2060; S9485